=== PATIENT | female | born 1995 | race Two or more races ===

== ENCOUNTER 2020-11-27 18:41 | Emergency (ER) | payer MEDICAID, OTHER ==
[~2020-11-27] VITALS: Ht 162.6 cm; Wt 86.2 kg
[2020-11-27 19:33] LABS: Basophils # (auto) 0 10 ^3/uL (0-0.2); Eosinophils # (auto) 0.1 10 ^3/uL (0-0.8); Lymphocytes # (auto) 2.6 10 ^3/uL (0.4-5.4); Monocytes # (auto) 0.4 10 ^3/uL (0-1.3); Nucleated Red Blood Cells % 0.1 %
[2020-11-27 19:35] LABS: Basophils % (auto) 0.4 % (0.0-2.0); Eosinophils % (auto) 1.8 % (0.0-7.0); Hematocrit 38.2 % (36.0-46.0); Lymphocytes % (auto) 33.7 % (10.0-50.0); Mean Corpuscular Hemoglobin 26.3 pg (28.0-32.0); Mean Corpuscular Hgb Conc. 33.9 g/dL (32.0-36.0); Mean Corpuscular Volume 77.4 fL (80.0-100.0); Monocytes % (auto) 5.6 % (0.0-12.0); Neutrophils # (auto) 4.5 10 ^3/uL (1.6-8.6); Neutrophils % (auto) 58.5 % (37.0-80.0); Platelet Count (auto) 418 10^3/uL (140-450); Red Blood Cells 4.93 10^6/uL (4.0-5.20); Red Cell Distribution Width 15.2 % (11.8-14.3); White Blood Cell 7.7 10^3/uL (4.4-10.8)
[2020-11-27 19:49] LABS: Albumin 3.8 g/dL (3.4-5.0); Calcium 8.9 mg/dL (8.5-10.1); Potassium 3.9 mmol/L (3.5-5.1)
[2020-11-27 19:51] LABS: BUN/Creatinine Ratio 17.4
[2020-11-27 19:54] LABS: Bilirubin, Total 0.3 mg/dL (0.2-1.0); Total Protein 8.1 g/dL (6.4-8.2)
[2020-11-27 19:57] LABS: Urine Bacteria MANY /hpf (None Seen); Urine Blood Negative /uL (Negative); Urine Hyaline Cast FEW /lpf (0 - 2); Urine Mucus FEW (None Seen); Urine Specific Gravity 1.026 (1.001-1.035); Urine WBC 2 /hpf (0 - 5)
[2020-11-27] MEDS ORDERED: ONDANSETRON HCL 4 MG/2 ML VIAL IV ONE (20:45)
[2020-11-27] MEDS ORDERED: SODIUM CHLORIDE 0.9% 1,000 ML IV ONE (20:45)
[2020-11-27] MEDS ORDERED: IOHEXOL 300 MG/ML 100ML BOTTLE IJ ONE (22:09)
[2020-11-27] MEDS ORDERED: fentaNYL CITRATE 100 MCG/2 ML VL IV ONE (23:15)
[2020-11-28] MEDS ORDERED: cefTRIAXone 1GM/50ML D5W 50 ML IV ONE (01:00)
[2020-11-28 01:40] VITALS: BP 94/62
== END 2020-11-28 02:03 | disposition home or self-care (01) ==
LOC: ER 18:41
DX: R10.9 Unspecified abdominal pain (principal); R11.2 Nausea with vomiting, unspecified
CPT/HCPCS: 36415; 74176; 80053; 81001; 83690; 84702; 85025; 96361; 96365; 96375; 99285; J0696; J2405; J3010; Q9967

== ENCOUNTER 2021-02-01 08:13 | Emergency (ER) | payer MEDICAID ==
[~2021-02-01] VITALS: Ht 162.6 cm; Wt 95.3 kg
[2021-02-01 08:45] LABS: Basophils # (auto) 0.1 10 ^3/uL (0-0.2); Eosinophils # (auto) 0.3 10 ^3/uL (0-0.8); Hemoglobin 12.7 g/dL (12.2-16.2); Monocytes # (auto) 0.4 10 ^3/uL (0-1.3); White Blood Cell 8.6 10^3/uL (4.4-10.8)
[2021-02-01 08:46] LABS: Eosinophils % (auto) 3.2 % (0.0-7.0); Hematocrit 37.3 % (36.0-46.0); Lymphocytes # (auto) 2.5 10 ^3/uL (0.4-5.4); Mean Corpuscular Hemoglobin 26.3 pg (28.0-32.0); Mean Corpuscular Hgb Conc. 34.2 g/dL (32.0-36.0); Mean Corpuscular Volume 76.9 fL (80.0-100.0); Monocytes % (auto) 4.8 % (0.0-12.0); Neutrophils # (auto) 5.3 10 ^3/uL (1.6-8.6); Red Blood Cells 4.85 10^6/uL (4.0-5.20); Red Cell Distribution Width 14.8 % (11.8-14.3)
[2021-02-01 08:48] LABS: Urine Bacteria FEW /hpf (None Seen); Urine Blood Negative /uL (Negative); Urine Mucus FEW (None Seen); Urine Specific Gravity 1.022 (1.001-1.035); Urine WBC 1 /hpf (0 - 5)
[2021-02-01 09:06] LABS: Albumin 3.4 g/dL (3.4-5.0); Calcium 8.7 mg/dL (8.5-10.1); Potassium 3.9 mmol/L (3.5-5.1)
[2021-02-01 09:09] LABS: BUN/Creatinine Ratio 16.9; Bilirubin, Total 0.4 mg/dL (0.2-1.0); Total Protein 7.4 g/dL (6.4-8.2)
[2021-02-01 10:07] VITALS: BP 120/75
== END 2021-02-01 09:56 | disposition home or self-care (01) ==
LOC: ER 08:13
DX: K52.9 Noninfective gastroenteritis and colitis, unspecified (principal); Z90.89 Acquired absence of other organs; Z88.8 Allergy status to other drugs, medicaments and biological substances
CPT/HCPCS: 36415; 80053; 81001; 82150; 83690; 85025

== ENCOUNTER 2021-06-11 19:49 | Emergency (ER) | payer MEDICAID, OTHER ==
[~2021-06-11] VITALS: Ht 162.6 cm; Wt 90.7 kg
[2021-06-11] MEDS ORDERED: HYDROcodone-ACET 10/325MG TAB PO ONE (20:15)
[2021-06-11 22:23] LABS: Basophils # (auto) 0.1 10 ^3/uL (0-0.2); Basophils % (auto) 1.3 % (0.0-2.0); Eosinophils # (auto) 0.4 10 ^3/uL (0-0.8); Eosinophils % (auto) 3.4 % (0.0-7.0); Hematocrit 41.2 % (36.0-46.0); Hemoglobin 13.4 g/dL (12.2-16.2); Lymphocytes # (auto) 3.3 10 ^3/uL (0.4-5.4); Lymphocytes % (auto) 30.2 % (10.0-50.0); Mean Corpuscular Hemoglobin 25.5 pg (28.0-32.0); Mean Corpuscular Hgb Conc. 32.5 g/dL (32.0-36.0); Mean Corpuscular Volume 78.2 fL (80.0-100.0); Monocytes # (auto) 0.6 10 ^3/uL (0-1.3); Monocytes % (auto) 5.4 % (0.0-12.0); Neutrophils # (auto) 6.5 10 ^3/uL (1.6-8.6); Neutrophils % (auto) 59.7 % (37.0-80.0); Red Blood Cells 5.27 10^6/uL (4.0-5.20); White Blood Cell 10.9 10^3/uL (4.4-10.8)
[2021-06-11 22:38] LABS: INR 0.97 (0.9-1.15); Partial Thromboplastin Time 31.7 sec (23.6-33.0)
[2021-06-11 22:45] LABS: Albumin 3.7 g/dL (3.4-5.0); Calcium 9.1 mg/dL (8.5-10.1); Potassium 4.2 mmol/L (3.5-5.1)
[2021-06-11 22:47] LABS: BUN/Creatinine Ratio 15.6
[2021-06-11 22:49] LABS: Bilirubin, Total 0.2 mg/dL (0.2-1.0); Total Protein 7.5 g/dL (6.4-8.2)
[2021-06-12 00:08] LABS: Urine Amorphous Crystal FEW /hpf (None Seen); Urine Bacteria FEW /hpf (None Seen); Urine Blood 1+ /uL (Negative); Urine Specific Gravity 1.023 (1.001-1.035); Urine WBC 8 /hpf (0 - 5)
[2021-06-12 03:12] VITALS: BP 138/84
== END 2021-06-12 04:58 | disposition left against medical advice (07) ==
LOC: ER 19:53
DX: R10.30 Lower abdominal pain, unspecified (principal); M54.9 Dorsalgia, unspecified; Z90.89 Acquired absence of other organs; Z88.8 Allergy status to other drugs, medicaments and biological substances
CPT/HCPCS: 36415; 76830; 76856; 80053; 81001; 84702; 85025; 85610; 85730

== ENCOUNTER 2021-10-14 19:29 | Emergency (ER) | payer MEDICAID, OTHER ==
[~2021-10-14] VITALS: Ht 162.6 cm; Wt 89.8 kg
[2021-10-14] MEDS ORDERED: HYDROcodone-ACET 5/325MG TAB PO ONE (23:30)
[2021-10-15] MEDS ORDERED: HYDR-4902 PO (01:09)
[2021-10-15 02:25] VITALS: BP 111/65
== END 2021-10-15 05:14 | disposition home or self-care (01) ==
LOC: ER 19:29
DX: M54.50 Low back pain, unspecified (principal); Z90.89 Acquired absence of other organs; Z88.8 Allergy status to other drugs, medicaments and biological substances
CPT/HCPCS: 72131; 81025

== ENCOUNTER 2021-12-04 16:07 | Emergency (ER) | payer MEDICAID, OTHER ==
[~2021-12-04] VITALS: Ht 162.6 cm; Wt 102.1 kg
[2021-12-04 16:09] VITALS: BP 138/87
[2021-12-04 16:52] LABS: Basophils # (auto) 0.1 10 ^3/uL (0-0.2); Basophils % (auto) 0.6 % (0.0-2.0); Eosinophils # (auto) 0.3 10 ^3/uL (0-0.8); Eosinophils % (auto) 2.3 % (0.0-7.0); Hematocrit 39.1 % (36.0-46.0); Lymphocytes % (auto) 16.1 % (10.0-50.0); Mean Corpuscular Hemoglobin 26.2 pg (28.0-32.0); Mean Corpuscular Hgb Conc. 33.4 g/dL (32.0-36.0); Mean Corpuscular Volume 78.4 fL (80.0-100.0); Monocytes # (auto) 0.5 10 ^3/uL (0-1.3); Monocytes % (auto) 3.9 % (0.0-12.0); Neutrophils # (auto) 9.8 10 ^3/uL (1.6-8.6); Neutrophils % (auto) 77.1 % (37.0-80.0); Nucleated Red Blood Cells % 0.1 %; Red Blood Cells 4.98 10^6/uL (4.0-5.20); White Blood Cell 12.6 10^3/uL (4.4-10.8)
[2021-12-04 17:10] LABS: Albumin 3.6 g/dL (3.4-5.0); Calcium 9.1 mg/dL (8.5-10.1); Potassium 3.8 mmol/L (3.5-5.1)
[2021-12-04 17:13] LABS: Bilirubin, Total 0.4 mg/dL (0.2-1.0)
[2021-12-04 17:50] LABS: INR 1.04 (0.9-1.15); Partial Thromboplastin Time 32.5 sec (23.6-33.0)
[2021-12-04] MEDS ORDERED: HYDROcodone-ACET 10/325MG TAB PO ONE (20:45)
[2021-12-04] MEDS ORDERED: CEPH-509 PO (22:28)
== END 2021-12-05 00:52 | disposition home or self-care (01) ==
LOC: ER 16:07
DX: K92.2 Gastrointestinal hemorrhage, unspecified (principal); N39.0 Urinary tract infection, site not specified; Z90.89 Acquired absence of other organs; Z88.8 Allergy status to other drugs, medicaments and biological substances
CPT/HCPCS: 36415; 74176; 80053; 85025; 85610; 85730

== ENCOUNTER 2022-03-09 19:13 | Emergency (ER) | payer OTHER ==
[~2022-03-09] VITALS: Ht 165.1 cm; Wt 95.0 kg
[~2022-03-09 19:13] MED LIST: CEPH-509 PO
[2022-03-09 22:33] LABS: Basophils # (auto) 0.1 10 ^3/uL (0-0.2); Eosinophils # (auto) 0.3 10 ^3/uL (0-0.8); Monocytes # (auto) 0.6 10 ^3/uL (0-1.3); Neutrophils % (auto) 61.7 % (37.0-80.0)
[2022-03-09 22:34] LABS: Basophils % (auto) 0.8 % (0.0-2.0); Eosinophils % (auto) 2.7 % (0.0-7.0); Hematocrit 38.2 % (36.0-46.0); Hemoglobin 12.5 g/dL (12.2-16.2); Lymphocytes # (auto) 3.5 10 ^3/uL (0.4-5.4); Lymphocytes % (auto) 29.7 % (10.0-50.0); Mean Corpuscular Hemoglobin 25.3 pg (28.0-32.0); Mean Corpuscular Hgb Conc. 32.6 g/dL (32.0-36.0); Mean Corpuscular Volume 77.4 fL (80.0-100.0); Monocytes % (auto) 5.1 % (0.0-12.0); Neutrophils # (auto) 7.3 10 ^3/uL (1.6-8.6); Red Blood Cells 4.94 10^6/uL (4.0-5.20); Red Cell Distribution Width 15.5 % (11.8-14.3); White Blood Cell 11.9 10^3/uL (4.4-10.8)
[2022-03-09 22:50] LABS: Albumin 3.6 g/dL (3.4-5.0); BUN/Creatinine Ratio 19.4; Potassium 3.5 mmol/L (3.5-5.1)
[2022-03-09 22:53] LABS: Bilirubin, Total 0.2 mg/dL (0.2-1.0); Total Protein 7.7 g/dL (6.4-8.2)
[2022-03-09 23:32] LABS: Urine Bacteria FEW /hpf (None Seen); Urine Blood Negative /uL (Negative); Urine Specific Gravity 1.018 (1.001-1.035); Urine WBC 8 /hpf (0 - 5)
[2022-03-10] MEDS ORDERED: NITR-87 PO (00:56)
[2022-03-10 01:30] VITALS: BP 131/75
== END 2022-03-10 01:38 | disposition home or self-care (01) ==
LOC: ER 19:15
DX: N39.0 Urinary tract infection, site not specified (principal); Z88.8 Allergy status to other drugs, medicaments and biological substances
CPT/HCPCS: 36415; 74176; 80053; 81001; 83605; 83690; 84702; 85025

== ENCOUNTER 2023-02-04 16:25 | Emergency (ER) | payer OTHER ==
[~2023-02-04] VITALS: Ht 162.6 cm; Wt 110.0 kg
[~2023-02-04 16:25] MED LIST changes: +NITR-87 PO; +PANT40TA2 PO
[2023-02-04] MEDS ORDERED: CEPH500C PO (20:45)
[2023-02-04] MEDS ORDERED: ZOFR4T PO (20:45)
[2023-02-04] MEDS ORDERED: HYDR-4902 PO (20:45)
[2023-02-04] MEDS ORDERED: HYDROcodone-ACET 5/325MG TAB PO ONE (20:45)
[2023-02-04] MEDS ORDERED: ONDANSETRON ODT 4 MG TAB PO ONE (20:45)
[2023-02-04] MEDS ORDERED: TETANUS-DIPTH-ACEL PERTUSSIS 0.5ML SYR Tdap IM ONE (20:45)
[2023-02-04 20:55] VITALS: BP 126/74; PULSE 76; RESP 16; TEMP 98.6; O2SAT 98
== END 2023-02-04 21:03 | disposition home or self-care (01) ==
LOC: ER 16:25
DX: S91.331A Puncture wound without foreign body, right foot, initial encounter (principal); Z79.899 Other long term (current) drug therapy; Z91.040 Latex allergy status; Z90.89 Acquired absence of other organs; W22.8XXA Striking against or struck by other objects, initial encounter; Y93.89 Activity, other specified; Y92.89 Other specified places as the place of occurrence of the external cause; Y99.8 Other external cause status
CPT/HCPCS: 73630; 90471; 90715; 99283; Q0162

== ENCOUNTER 2024-01-01 15:09 | Emergency (ER) | payer MEDICAID ==
[~2024-01-01] VITALS: Ht 160 cm; Wt 108.2 kg
[~2024-01-01 15:09] MED LIST changes: +CEPH500C PO; +HYDR-4902 PO; +ZOFR4T PO
[2024-01-01] MEDS: MORPHINE SULFATE 4 MG/ML SYR/VIAL IV ONE (16:49)
[2024-01-01] MEDS: ONDANSETRON HCL 4 MG/2 ML VIAL IV ONE (16:50)
[2024-01-01 16:52] LABS: Basophils # (auto) 0.1 10 ^3/uL (0-0.2); Basophils % (auto) 0.6 % (0.0-2.0); Eosinophils # (auto) 0.2 10 ^3/uL (0-0.8); Monocytes # (auto) 0.4 10 ^3/uL (0-1.3); Neutrophils % (auto) 76.9 % (37.0-80.0)
[2024-01-01] MEDS: SODIUM CHLORIDE 0.9% 1,000 ML IV ONE (16:52)
[2024-01-01 16:55] VITALS: PULSE 89; RESP 12; O2SAT 98
[2024-01-01 16:55] LABS: Eosinophils % (auto) 1.7 % (0.0-7.0); Hematocrit 36.7 % (36.0-46.0); Lymphocytes % (auto) 17.4 % (10.0-50.0); Mean Corpuscular Hemoglobin 24.6 pg (28.0-32.0); Mean Corpuscular Hgb Conc. 32.6 g/dL (32.0-36.0); Mean Corpuscular Volume 75.5 fL (80.0-100.0); Monocytes % (auto) 3.4 % (0.0-12.0); Red Blood Cells 4.86 10^6/uL (4.0-5.20); Red Cell Distribution Width 16.7 % (11.8-14.3); White Blood Cell 11.7 10^3/uL (4.4-10.8)
[2024-01-01 17:00] LABS: Urine Bacteria FEW /hpf (None Seen); Urine Blood 3+ /uL (Negative); Urine Clarity Ex.Turbid (Clear); Urine Color Brown (Yellow); Urine Mucus FEW (None Seen); Urine Protein, UAD 1+ (Negative); Urine Specific Gravity 1.023 (1.001-1.035); Urine Urobilinogen Normal (Negative); Urine WBC 34 /hpf (0 - 5); Urine WBC Clumps PRESENT /hpf (None Seen); Urine pH 7.5 (5.0-9.0)
[2024-01-01 17:05] LABS: Alanine Aminotransferase 19 U/L (7-40); Alkaline Phosphatase 87 U/L (46-116); Anion Gap 8 (5-15); Aspartate Aminotransferase < 8 U/L (13-40); BUN/Creatinine Ratio 14.8 (10.0-20.0); Blood Urea Nitrogen 12 mg/dL (9-23); Calcium 9.7 mg/dL (8.7-10.4); Carbon Dioxide 23 mmol/L (20-30); Chloride 106 mmol/L (98-107); Glucose 137 mg/dL (74-106); Potassium 3.9 mmol/L (3.5-5.1); Sodium 137 mmol/L (136-145)
[2024-01-01 17:06] LABS: Albumin 4.5 g/dL (3.2-4.8)
[2024-01-01 17:07] LABS: Bilirubin, Total 0.3 mg/dL (0.2-1.0); Total Protein 7.3 g/dL (5.7-8.2)
[2024-01-01 17:28] LABS: INR 1.04 (0.9-1.15)
[2024-01-01] MEDS ORDERED: NITR-87 PO (17:49)
[2024-01-01 21:31] VITALS: BP 128/68; PULSE 69; RESP 20; TEMP 98.4; O2SAT 100
== END 2024-01-01 21:33 | disposition home or self-care (01) ==
LOC: ER 15:09
DX: N93.9 Abnormal uterine and vaginal bleeding, unspecified (principal); R10.2 Pelvic and perineal pain; N39.0 Urinary tract infection, site not specified; Z85.9 Personal history of malignant neoplasm, unspecified; Z98.890 Other specified postprocedural states; Z87.891 Personal history of nicotine dependence; Z88.8 Allergy status to other drugs, medicaments and biological substances; Z91.041 Radiographic dye allergy status; Z79.899 Other long term (current) drug therapy
CPT/HCPCS: 36415; 76830; 76856; 80053; 81001; 84702; 85025; 85610; 86900; 86901; 96374; 96375; 99285; J2270; J2405

== ENCOUNTER → 2024-02-18 | Day surgery (SDC) | payer MEDICAID ==
[2024-02-15 15:16] LABS: Urine Bacteria None Seen /hpf (None Seen)
[2024-02-15 15:18] LABS: Basophils # (auto) 0.1 10 ^3/uL (0-0.2); Eosinophils # (auto) 0.3 10 ^3/uL (0-0.8); Monocytes # (auto) 0.6 10 ^3/uL (0-1.3)
[2024-02-15 15:22] LABS: Basophils % (auto) 0.8 % (0.0-2.0); Eosinophils % (auto) 2.4 % (0.0-7.0); Hematocrit 35.3 % (36.0-46.0); Hemoglobin 11.2 g/dL (12.2-16.2); Lymphocytes # (auto) 2.8 10 ^3/uL (0.4-5.4); Lymphocytes % (auto) 23.3 % (10.0-50.0); Mean Corpuscular Hemoglobin 23.9 pg (28.0-32.0); Mean Corpuscular Hgb Conc. 31.9 g/dL (32.0-36.0); Monocytes % (auto) 5.3 % (0.0-12.0); Neutrophils # (auto) 8.2 10 ^3/uL (1.6-8.6); Neutrophils % (auto) 68.2 % (37.0-80.0); Platelet Count (auto) 473 10^3/uL (140-450); Red Cell Distribution Width 15.9 % (11.8-14.3)
[2024-02-15 15:39] LABS: INR 1.02 (0.9-1.15); Partial Thromboplastin Time 30.8 SEC (24.5-34.5); Prothrombin Time 10.8 sec (9.3-11.8); Urine Blood Negative /uL (Negative); Urine Clarity Turbid (Clear); Urine Color Light-Yellow (Yellow); Urine Protein, UAD Negative (Negative); Urine Specific Gravity 1.019 (1.001-1.035); Urine Urobilinogen Normal (Negative); Urine WBC 1 /hpf (0 - 5); Urine pH 6.5 (5.0-9.0)
[2024-02-15 16:04] LABS: Alanine Aminotransferase 20 U/L (7-40); Albumin 4.5 g/dL (3.2-4.8); Alkaline Phosphatase 101 U/L (46-116); Anion Gap 6 (5-15); Aspartate Aminotransferase < 8 U/L (13-40); BUN/Creatinine Ratio 13.9 (10.0-20.0); Bilirubin, Total 0.4 mg/dL (0.2-1.0); Blood Urea Nitrogen 11 mg/dL (9-23); Calcium 9.7 mg/dL (8.7-10.4); Carbon Dioxide 27 mmol/L (20-30); Chloride 106 mmol/L (98-107); Glucose 106 mg/dL (74-106); Potassium 3.7 mmol/L (3.5-5.1); Sodium 139 mmol/L (136-145); Total Protein 7.1 g/dL (5.7-8.2)
[~2024-02-18] VITALS: Ht 162.6 cm; Wt 105.2 kg
[~2024-02-18] MED LIST changes: +ATOR20TA PO; -CEPH-509 PO; -CEPH500C PO; +CHOL200031 PO; +GLYCOPYRROLATE 0.2 MG/ML 1ML VIAL ONE; -HYDR-4902 PO; +HYDROmorphone HCL 2 MG/ML VL/or syr IV PRN; +KETAMINE 50mg/ML 1ml syringe ONE; +MIDAZOLAM HCL 2MG/2ML 2ml VIAL (1mg/ml) ONE; -NITR-87 PO; +ONDANSETRON HCL 4 MG/2 ML VIAL IV ONE; +ONDANSETRON HCL 4 MG/2 ML VIAL ONE; +PROPOFOL 10 MG/ML 20 ML IV ONE; -ZOFR4T PO; +fentaNYL CITRATE 100 MCG/2 ML VL ONE
[2024-02-18 11:14] VITALS: RESP 11; TEMP 98; O2SAT 100
[2024-02-18 11:38] VITALS: BP 103/55; PULSE 70; RESP 16; O2SAT 95
== END | disposition home or self-care (01) ==
LOC: GI 08:18
PROVIDERS: ATTEND Internal Medicine Gastroenterology
DX: R10.13 Epigastric pain (principal); R11.2 Nausea with vomiting, unspecified; E78.00 Pure hypercholesterolemia, unspecified; K44.9 Diaphragmatic hernia without obstruction or gangrene; E28.2 Polycystic ovarian syndrome; J45.909 Unspecified asthma, uncomplicated; G89.29 Other chronic pain; M06.9 Rheumatoid arthritis, unspecified; F32.A Depression, unspecified; E66.9 Obesity, unspecified; Z68.39 Body mass index [BMI] 39.0-39.9, adult; Z79.899 Other long term (current) drug therapy; Z90.89 Acquired absence of other organs; Z85.43 Personal history of malignant neoplasm of ovary; Z86.16 Personal history of COVID-19; Z85.6 Personal history of leukemia; Z87.891 Personal history of nicotine dependence; Z88.6 Allergy status to analgesic agent; Z88.8 Allergy status to other drugs, medicaments and biological substances; Z91.041 Radiographic dye allergy status
CPT/HCPCS: 36415; 43235; 80053; 81001; 84702; 85025; 85610; 85730; J2250; J2405; J2704; J3010; J7030

== ENCOUNTER 2024-05-01 20:58 | Emergency (ER) | payer MEDICAID ==
[~2024-05-01] VITALS: Ht 162.6 cm; Wt 110.0 kg
[~2024-05-01 20:58] MED LIST changes: -GLYCOPYRROLATE 0.2 MG/ML 1ML VIAL ONE; -HYDROmorphone HCL 2 MG/ML VL/or syr IV PRN; -KETAMINE 50mg/ML 1ml syringe ONE; -MIDAZOLAM HCL 2MG/2ML 2ml VIAL (1mg/ml) ONE; -ONDANSETRON HCL 4 MG/2 ML VIAL IV ONE; -ONDANSETRON HCL 4 MG/2 ML VIAL ONE; -PROPOFOL 10 MG/ML 20 ML IV ONE; -fentaNYL CITRATE 100 MCG/2 ML VL ONE
[2024-05-01 21:42] LABS: Basophils # (auto) 0.1 10 ^3/uL (0-0.2); Basophils % (auto) 0.6 % (0.0-2.0); Eosinophils # (auto) 0.3 10 ^3/uL (0-0.8); Eosinophils % (auto) 2.9 % (0.0-7.0); Hematocrit 36.3 % (36.0-46.0); Hemoglobin 11.8 g/dL (12.2-16.2); Lymphocytes % (auto) 26.4 % (10.0-50.0); Mean Corpuscular Hemoglobin 24.2 pg (28.0-32.0); Mean Corpuscular Hgb Conc. 32.4 g/dL (32.0-36.0); Mean Corpuscular Volume 74.8 fL (80.0-100.0); Monocytes # (auto) 0.5 10 ^3/uL (0-1.3); Monocytes % (auto) 4.6 % (0.0-12.0); Neutrophils # (auto) 7.6 10 ^3/uL (1.6-8.6); Neutrophils % (auto) 65.5 % (37.0-80.0); Platelet Count (auto) 537 10^3/uL (140-450); Red Blood Cells 4.85 10^6/uL (4.0-5.20); White Blood Cell 11.5 10^3/uL (4.4-10.8)
[2024-05-01 21:46] LABS: Chloride 111 mmol/L (98-107); Potassium 4.4 mmol/L (3.5-5.1); Sodium 140 mmol/L (136-145)
[2024-05-01 21:47] LABS: Anion Gap 8 (5-15); Calcium 9.9 mg/dL (8.7-10.4); Carbon Dioxide 21 mmol/L (20-31)
[2024-05-01 21:52] LABS: BUN/Creatinine Ratio 16.2 (10.0-20.0); Blood Urea Nitrogen 12 mg/dL (9-23); Glucose 110 mg/dL (74-106)
[2024-05-01 22:19] LABS: Urine Bacteria FEW /hpf (None Seen); Urine Blood 2+ /uL (Negative); Urine Clarity Clear (Clear); Urine Color Light-Yellow (Yellow); Urine Mucus FEW (None Seen); Urine Protein, UAD Negative (Negative); Urine Specific Gravity 1.022 (1.001-1.035); Urine Urobilinogen Normal (Negative); Urine WBC 3 /hpf (0 - 5)
[2024-05-01] MEDS: HYDROcodone-ACET 5/325MG TAB PO ONE (23:12)
[2024-05-01 23:14] VITALS: BP 112/68; PULSE 88; RESP 19; TEMP 98.2; O2SAT 97
[2024-05-02] MEDS ORDERED: IBU600T PO (00:45)
== END 2024-05-02 01:02 | disposition home or self-care (01) ==
LOC: ER 20:58
DX: N83.201 Unspecified ovarian cyst, right side (principal); R10.2 Pelvic and perineal pain; N92.0 Excessive and frequent menstruation with regular cycle; F17.290 Nicotine dependence, other tobacco product, uncomplicated; E66.01 Morbid (severe) obesity due to excess calories; Z68.41 Body mass index [BMI] 40.0-44.9, adult; Z86.2 Personal history of diseases of the blood and blood-forming organs and certain disorders involving the immune mechanism; Z85.9 Personal history of malignant neoplasm, unspecified; Z98.890 Other specified postprocedural states; Z90.89 Acquired absence of other organs; Z91.041 Radiographic dye allergy status; Z88.8 Allergy status to other drugs, medicaments and biological substances; Z88.6 Allergy status to analgesic agent; Z79.899 Other long term (current) drug therapy
CPT/HCPCS: 36415; 76830; 76856; 80048; 81001; 84702; 85025

== ENCOUNTER 2024-06-10 14:12 | Emergency (ER) | payer MEDICAID ==
[~2024-06-10] VITALS: Ht 162.6 cm; Wt 111.0 kg
[~2024-06-10 14:12] MED LIST changes: +IBU600T PO
--- NOTE | 2024-06-10 15:14 | DVH ---
CLINICAL INDICATION: PAIN TECHNIQUE: 3 radiographic views of the right forearm were obtained. Comparison: XY R FOOT 3 VIEW XRAY on DOS: 02/04/23 FINDINGS/IMPRESSION: There is no evidence of acute fracture or dislocation. The visualized joint space is well maintained. The alignment is anatomical. There is no radiopaque foreign body.
--- NOTE | 2024-06-10 16:07 | ED.PDOC ---
Musculoskeletal HPI Comments This patient is a pleasant but severely morbidly obese 28-year-old female who arrives the ED today for evaluation of distal right forearm pain status post having a clock fall on arm proximally 1 hour prior to arrival. Patient states it was a manage her grandfather clock that fell over, striking her on the right forearm. Patient arrives with mild swelling and discomfort. No bruising noted. No blood loss. Vital signs were stable on arrival. Patient denies any head trauma. Chief Complaint: Upper Extremity Time Seen by MD: 15:55 Primary Care Provider: Hima Reviewed Notes: Nurses Notes Allergies: Coded Allergies: Ibuprofen (Verified Allergy, Severe, 11/27/20) Iodine (Verified Allergy, Unknown, 10/14/21) Valproic Acid (Verified Allergy, Unknown, 02/04/23) Home Meds Active Scripts Ibuprofen Micronized (MOTRIN TABLET) 600 Mg Tb, 600 MG PO TID PRN, #40 TAB *Black box warning-NSAIDS can increase risk of CT & hypertension, GI irritation, ulceration, bleed, perferation. Do not use post cardiac surgery. Use short duration/lowest effective dose. Prov:DAMON WOOTEN MD 05/02/24 Pantoprazole Sodium Sesquihydr (Protonix) 40 Mg Tab, 40 MG PO DAILY, #30 TAB Prov:HIEN ROACH DO 10/02/23 Reported Medications Atorvastatin Calcium (Lipitor) Unknown Strength Tab, PO DAILY, TAB 02/17/24 Cholecalciferol (D3) Unknown Strength Cap, PO DAILY, CAP 02/17/24 Information Source: Patient, Friend Mode of Arrival: Ambulatory Location: Right Extremity Location: Forearm Timing: Hours Prehospital treatment: None Severity: Mild Able to Move Extremity: Yes Bear Weight: Fully Pain: Moderate Hand Dominance: Right Mechanism: Blunt Trauma Circumstances: Spontaneous Onset of Symptoms: After Trauma Symptoms: Swelling, Pain DVT Risk Factors: NONE Past Medical History PAST MEDICAL HISTORY: Anemia, Cancer Surgical History: Hernia Repair, Tonsillectomy PORTER HEAD History: Endometriosis, Other Family History Family History: Reviewed,noncontributory to illness Social History Smoker: Non-Smoker Alcohol: Occasionally Drugs: Denies Drug Use Lives In: Home Constitutional: denies: chills, diaphoresis, fatigue, fever, malaise, sweats, weakness, others EENTM: denies: blurred vision, double vision, ear bleeding, ear discharge, ear drainage, ear pain, ear ringing, eye pain, eye redness, hearing loss, mouth pain, mouth swelling, nasal discharge, nose bleeding, nose congestion, nose pain, photophobia, tearing, throat pain, throat swelling, voice changes, others Respiratory: denies: cough, hemoptysis, orthopnea, SOB at rest, shortness of breath, SOB with excertion, stridor, wheezing, others Cardiovascular: denies: chest pain, dizzy spells, diaphoresis, Dyspnea on exertion, edema, irregular heart beat, left arm pain, lightheadedness, palpitations, PND, syncope, others Gastrointestinal: denies: abdomen distended, abdominal pain, blood streaked bowels, constipated, diarrhea, dysphagia, difficulty swallowing, hematemesis, melena, nausea, poor appetite, poor fluid intake, rectal bleeding, rectal pain, vomiting, others Genitourinary: denies: abnormal vagina bleeding, burning, dyspareunia, dysuria, flank pain, frequency, hematuria, incontinence, pain, , vagina discharge, urgency, others Neurological: denies: dizziness, fainting, headache, left sided numbness, left sided weakness, numbness, paresthesia, pre-existing deficit, right sided numbness, right sided weakness, seizure, speech problems, tingling, tremors, weakness, others Musculoskeletal: reports: others (Distal right forearm pain); denies: back pain, gout, joint pain, joint swelling, muscle pain, muscle stiffness, neck pain Integumetry: denies: bruises, change in color, change in hair/nails, dryness, laceration, lesions, lumps, rash, wounds, others Allergic/Immunocompromised: denies: Difficulty Healing, Frequent Infections, Hives, Itching, others Hematologic/Lymphatic: denies: anemia, blood clots, easy bleeding, easy bruising, swollen glands, others Endocrine: denies: excessive hunger, excessive sweating, excessive thirst, excessive urination, flushing, intolerance to cold, intolerance to heat, unexplained weight gain, unexplained weight loss, others Psychiatric: denies: anxiety, bipolar disorder, depression, hopeless, panic disorder, schizophrenia, sleepless, suicidal, others Physical Exam General Appearance: Moderate Distress ([id number] distress due to right forearm pain concerns. Patient declined any pain medication while at the facility has she states she has multiple pain medication options at home.), Obese HEENT: Normal ENT Inspection, Pharynx Normal, TMs Normal Neck: Full Range of Motion, Non-Tender, Normal, Normal Inspection Respiratory: Chest Non-Tender, Lungs Clear, No Accessory Muscle Use, No Respiratory Distress, Normal Breath Sounds Cardiovascular: No Edema, No JVD, No Murmur, No Gallop, Normal Peripheral Pulses, Regular Rate/Rhythm Breast Exam: Deferred Gastrointestinal: No Organomegaly, Non Tender, No Pulsatile Mass, Normal Bowel Sounds, Soft Genitalia: Deferred Pelvic: Deferred Rectal: Deferred Extremities: Other (Dorsal and lateral aspect of left forearm reveals mild edema and diffuse tenderness to palpation throughout the distal aspect. No ecchymosis appreciated. Mild reduced range of motion. 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 Was a procedure done?: No Differential Diagnosis EXT Differential Diagnosis: Fracture, Sprain, Contusion X-Ray, Labs, Meds, VS Vital Signs Date Time Temp Pulse Resp B/P (MAP) Pulse Ox O2 Delivery O2 Flow Rate FiO2 06/10/24 14:35 98.0 82 17 124/76 (92) 95 X-Ray, Labs, Meds, VS Comment All studies performed the ED were evaluated by me personally. Imaging studies of the right forearm were unremarkable for any acute fractures. Patient sustained a contusion to the distal aspect. Advised patient utilize pain medication as needed as well as ice therapy. Time of 1ST Reevaluation: 16:07 Reevaluation 1ST: Unchanged Consultation: PCP Patient Education/Counseling: Diagnosis, Treatment Family Education/Counseling: Diagnosis, Treatment Departure 1 Departure Time of Disposition: 16:06 Impression: Primary Impression: Contusion of forearm, right Disposition: 01 HOME / SELF CARE / HOMELESS Condition: Stable Additional Instructions: Advised pain medication and ice therapy as needed. Discharged With: Self, Friend Critical Care Note Critical Care Time?: No Stability Stability form required: No Heart Score Heart Score: Heart Score Response (Comments) Value History N/A 0 EKG N/A 0 Age N/A 0 Risk Factors N/A 0 Troponin N/A 0 Total 0 AURA TEIXEIRA PAC Jun 10, 2024 16:07
[2024-06-10 16:30] VITALS: BP 122/78; PULSE 80; RESP 18; TEMP 98.2; O2SAT 96
== END 2024-06-10 16:25 | disposition home or self-care (01) ==
LOC: ER 14:12
DX: S50.11XA Contusion of right forearm, initial encounter (principal); Z88.8 Allergy status to other drugs, medicaments and biological substances; Z79.899 Other long term (current) drug therapy; Z90.89 Acquired absence of other organs; W18.39XA Other fall on same level, initial encounter; Y93.89 Activity, other specified; Y92.89 Other specified places as the place of occurrence of the external cause; Y99.8 Other external cause status
CPT/HCPCS: 73090

== ENCOUNTER 2024-08-03 12:50 | Inpatient (IN) | payer MEDICAID ==
[~2024-08-03] VITALS: Ht 162.6 cm; Wt 112.6 kg
--- NOTE | 2024-08-03 14:47 | ED.PDOC ---
History of Present Illness HPI Comments 28-year-old female presents with a chief complaint of flank pain, nausea, and vomiting x 3 days. Patient states that she was at [facility] on Thursday (x3 days ago) and was told that one of the cysts on her kidneys popped. Patient reports that she had cysts drained and had to stay overnight for IV antibiotics and was discharged home. Patient mentions that this morning she woke up and had 10/10 pain to her bilateral flanks and could not walk due to the pain. Patient reports that she has not been able to urinate. No other symptoms or modifying factors present at this time. Chief Complaint: Flank Pain Time Seen by MD: 14:39 Primary Care Provider: Hima Forbes Notes: Medications, Allergies Allergies: Coded Allergies: Ibuprofen (Verified Allergy, Severe, 11/27/20) Iodine (Verified Allergy, Unknown, 10/14/21) Valproic Acid (Verified Allergy, Unknown, 02/04/23) Home Meds Active Scripts Ibuprofen Micronized (MOTRIN TABLET) 600 Mg Tb, 600 MG PO TID PRN, #40 TAB *Black box warning-NSAIDS can increase risk of [place] & hypertension, GI irritation, ulceration, bleed, perferation. Do not use post cardiac surgery. Use short duration/lowest effective dose. Prov:DAMON WOOTEN MD 05/02/24 Pantoprazole Sodium Sesquihydr (Protonix) 40 Mg Tab, 40 MG PO DAILY, #30 TAB Prov:HIEN ROACH DO 10/02/23 Reported Medications Atorvastatin Calcium (Lipitor) Unknown Strength Tab, PO DAILY, TAB 02/17/24 Cholecalciferol (D3) Unknown Strength Cap, PO DAILY, CAP 02/17/24 Information Source: Patient Mode of Arrival: Ambulatory Severity: Moderate Timing: Days Duration: Intermittent Prehospital treatment: None Past Medical History PAST MEDICAL HISTORY: Anemia, Cancer Surgical History: Hernia Repair, Tonsillectomy INSTRUMENT PERSON History: Endometriosis, Other Family History Family History: Reviewed,noncontributory to illness Social History Smoker: Quit Less Than 1 Year, Cigarettes Alcohol: Occasionally Drugs: Denies Drug Use Lives In: Home Constitutional: denies: chills, diaphoresis, fatigue, fever, malaise, sweats, weakness, others EENTM: denies: blurred vision, double vision, ear bleeding, ear discharge, ear drainage, ear pain, ear ringing, eye pain, eye redness, hearing loss, mouth pain, mouth swelling, nasal discharge, nose bleeding, nose congestion, nose pain, photophobia, tearing, throat pain, throat swelling, voice changes, others Respiratory: denies: cough, hemoptysis, orthopnea, SOB at rest, shortness of breath, SOB with excertion, stridor, wheezing, others Cardiovascular: denies: chest pain, dizzy spells, diaphoresis, Dyspnea on exertion, edema, irregular heart beat, left arm pain, lightheadedness, palpitations, PND, syncope, others Gastrointestinal: reports: nausea, vomiting; denies: abdomen distended, abdominal pain, blood streaked bowels, constipated, diarrhea, dysphagia, difficulty swallowing, hematemesis, melena, poor appetite, poor fluid intake, rectal bleeding, rectal pain, others Genitourinary: reports: flank pain; denies: abnormal vagina bleeding, burning, dyspareunia, dysuria, frequency, hematuria, incontinence, pain, , vagina discharge, urgency, others Neurological: denies: dizziness, fainting, headache, left sided numbness, left sided weakness, numbness, paresthesia, pre-existing deficit, right sided numbness, right sided weakness, seizure, speech problems, tingling, tremors, weakness, others Musculoskeletal: denies: back pain, gout, joint pain, joint swelling, muscle pain, muscle stiffness, neck pain, others Integumetry: denies: bruises, change in color, change in hair/nails, dryness, laceration, lesions, lumps, rash, wounds, others Allergic/Immunocompromised: denies: Difficulty Healing, Frequent Infections, Hives, Itching, others Hematologic/Lymphatic: denies: anemia, blood clots, easy bleeding, easy bruising, swollen glands, others Endocrine: denies: excessive hunger, excessive sweating, excessive thirst, excessive urination, flushing, intolerance to cold, intolerance to heat, unexplained weight gain, unexplained weight loss, others Psychiatric: denies: anxiety, bipolar disorder, depression, hopeless, panic disorder, schizophrenia, sleepless, suicidal, others All Other Systems: Reviewed and Negative Physical Exam General Appearance: Moderate Distress HEENT: Normal ENT Inspection, Pharynx Normal, TMs Normal Neck: Full Range of Motion, Non-Tender, Normal, Normal Inspection Respiratory: Chest Non-Tender, Lungs Clear, No Accessory Muscle Use, No Respiratory Distress, Normal Breath Sounds Cardiovascular: No Edema, No JVD, No Murmur, No Gallop, Normal Peripheral Pulses, Regular Rate/Rhythm Breast Exam: Deferred Gastrointestinal: No Organomegaly, Non Tender, No Pulsatile Mass, Normal Bowel Sounds, Soft Genitalia: Deferred Pelvic: Deferred Rectal: Deferred Extremities: No calf tenderness, Normal capillary refill, Normal inspection, Normal range of motion, Non-tender, No pedal edema Musculoskeletal : Apperance: Normal 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 Was a procedure done?: No Differential Dx Considerations may include: UTI, urinary retention, kidney stones, renal cysts X-Ray, Labs, Meds, VS Vital Signs Date Time Temp Pulse Resp B/P (MAP) Pulse Ox O2 Delivery O2 Flow Rate FiO2 08/03/24 16:30 78 16 123/68 08/03/24 16:02 20 100 Room Air* 0 21 08/03/24 15:45 90 20 122/75 08/03/24 15:28 90 20 97 Room Air 08/03/24 15:28 98.0 90 20 122/75 (91) 97 98.0 08/03/24 13:35 98.2 95 18 112/82 (92) 98 Lab Test 08/03/24 15:16 Range/Units White Blood Count 10.4 4.4-10.8 10^3/uL Red Blood Count 5.11 4.0-5.20 10^6/uL Hemoglobin 12.1 L 12.2-16.2 g/dL Hematocrit 37.5 36.0-46.0 % Mean Corpuscular Volume 73.4 L 80.0-100.0 fL Mean Corpuscular Hemoglobin 23.8 L 28.0-32.0 pg Mean Corpuscular Hemoglobin Concent 32.4 32.0-36.0 g/dL Red Cell Distribution Width 17.6 H 11.8-14.3 % Platelet Count 501 H 140-450 10^3/uL Mean Platelet Volume 6.7 L 6.9-10.8 fL Neutrophils (%) (Auto) 64.5 37.0-80.0 % Lymphocytes (%) (Auto) 26.3 10.0-50.0 % Monocytes (%) (Auto) 5.1 0.0-12.0 % Eosinophils (%) (Auto) 3.6 0.0-7.0 % Basophils (%) (Auto) 0.5 0.0-2.0 % Neutrophils # (Auto) 6.7 1.6-8.6 10 ^3/uL Lymphocytes # (Auto) 2.7 0.4-5.4 10 ^3/uL Monocytes # (Auto) 0.5 0-1.3 10 ^3/uL Eosinophils # (Auto) 0.4 0-0.8 10 ^3/uL Basophils # (Auto) 0.1 0-0.2 10 ^3/uL Nucleated Red Blood Cells 0.1 % Sodium Level 139 136-145 mmol/L Potassium Level 3.8 3.5-5.1 mmol/L Chloride Level 106 98-107 mmol/L Carbon Dioxide Level 25 20-31 mmol/L Anion Gap 8 5-15 Blood Urea Nitrogen 13 9-23 mg/dL Creatinine 0.69 0.550-1.02 mg/dL Glomerular Filtration Rate Calc 120 >90 mL/min BUN/Creatinine Ratio 18.8 10.0-20.0 Serum Glucose 89 74-106 mg/dL Calcium Level 10.2 8.7-10.4 mg/dL Current Medications Medications (Trade) Dose Ordered Sig/Diann Route Start Time Stop Time Status Last Admin Ondansetron HCl (Zofran) 4 mg ONCE ONCE IV 08/03/24 14:45 08/03/24 14:46 DC 08/03/24 15:44 Sodium Chloride 1,000 ml @ 1,000 mls/hr Q1H ONCE IVB 08/03/24 14:45 08/03/24 15:44 DC 08/03/24 15:28 Morphine Sulfate 4 mg ONCE ONCE IV 08/03/24 14:45 08/03/24 14:46 DC 08/03/24 15:45 Abdomen/Pelvis CT Impression: 1. There is no acute process in the abdomen and pelvis. 2. Stable nonspecific heterogeneous appearance of the kidneys as described above. Clinical correlation is recommended. If warranted, further evaluation with CT urogram may be performed. The patient states that she is unable to urinate We ordered a Smith catheter. The patient's CBC and chemistry panel are within normal limits The patient was given Zofran 4 mg IV push for the nausea The patient was given a 1 L bolus of normal saline The patient was given morphine for the pain The patient was being admitted to the hospitalist Images Reviewed?: Images reviewed and evaluated by me Time of 1ST Reevaluation: 15:09 Reevaluation 1ST: Unchanged Time of 2ND Reevaluation: 21:45 Reevaluation 2ND: Unchanged Patient Education/Counseling: Diagnosis, Treatment, Prognosis Family Education/Counseling: Diagnosis, Treatment, Prognosis Departure 1 Departure Time of Disposition: 21:44 Impression: Primary Impression: Flank pain Additional Impressions: Urinary retention Intractable abdominal pain Disposition: ADMITTED INPATIENT Admit to: Med Surg Condition: Fair Critical Care Note Critical Care Time?: No Stability Stability form required: Yes Unstable for transfer: ED Physician Assesment (Clinical assesment) Heart Score Heart Score: Heart Score Response (Comments) Value History N/A 0 EKG N/A 0 Age N/A 0 Risk Factors N/A 0 Troponin N/A 0 Total 0 I personally scribed for SUPA REESE MD ([email or web address]) on 08/03/24 at 14:47. Electronically submitted by Jair Grayson ([email or web address]). I personally scribed for SUPA REESE MD ([email or web address]) on 08/03/24 at 15:52. Electronically submitted by Jair Grayson ([email or web address]). SPUA REESE MD Aug 03, 2024 14:47
--- NOTE | 2024-08-03 15:15 | DVH ---
CT ABDOMEN AND PELVIS WITHOUT CONTRAST CLINICAL HISTORY: flank pain TECHNIQUE: Multiple contiguous axial images of the abdomen and pelvis without intravenous contrast. The images were reformatted degenerate coronal and sagittal reconstructions. All CT scans at this medical facility are performed using dose modulation techniques as appropriate t o a performed exam including the following:Automated exposure control was utilized; adjustment of the MA and/or KV according to patient size; and use of iterative reconstruction technique. Radiation Dose Information: CT Dose: CTDI volume is 26 mGy. Dose-length product is 1561 mGy*cm Comparison: CT CT AB PEL WO CON-NO ORAL OR IV on DOS: 12/30/23, CT CT AB PEL WO CON-NO ORAL OR IV on D OS: 10/02/23 FINDINGS: Evaluation of the abdomen and pelvis is limited without intravenous contrast. There is stable heterogeneous appearance of the bilateral renal parenchyma with poorly defined hypode nse areas bilaterally. There is stable appearing hyperdensity in the left renal pelvis. There is no e vidence of renal calculus or hydronephrosis. The liver, gallbladder, pancreas, adrenal glands, and spleen appear within normal limits. There is no gross evidence of abdominal lymphadenopathy. There is no free fluid or free air. The stomach grossly appears unremarkable. The small and large bowel loops demonstrate normal caliber . The appendix is not readily seen in the right lower quadrant abdomen. There are no secondary findi ngs of acute appendicitis. The abdominal aorta and IVC appear within normal limits. The bladder appears unremarkable for the degree of distention. There is an IUD seen within the uterus .. There is no gross evidence of a pelvic mass. There is no free fluid collection. Lung bases are clear. There is no acute osseous abnormality. IMPRESSION: 1. There is no acute process in the abdomen and pelvis. 2. Stable nonspecific heterogeneous appearance of the kidneys as described above. Clinical correlatio n is recommended. If warranted, further evaluation with CT urogram may be performed. HS:Y
[2024-08-03] MEDS: SODIUM CHLORIDE 0.9% 1,000 ML IVB ONE (15:28)
[2024-08-03 15:44] LABS: Basophils # (auto) 0.1 10 ^3/uL (0-0.2); Basophils % (auto) 0.5 % (0.0-2.0); Eosinophils # (auto) 0.4 10 ^3/uL (0-0.8); Eosinophils % (auto) 3.6 % (0.0-7.0); Hematocrit 37.5 % (36.0-46.0); Hemoglobin 12.1 g/dL (12.2-16.2); Lymphocytes # (auto) 2.7 10 ^3/uL (0.4-5.4); Lymphocytes % (auto) 26.3 % (10.0-50.0); Mean Corpuscular Hemoglobin 23.8 pg (28.0-32.0); Mean Corpuscular Hgb Conc. 32.4 g/dL (32.0-36.0); Mean Corpuscular Volume 73.4 fL (80.0-100.0); Monocytes # (auto) 0.5 10 ^3/uL (0-1.3); Monocytes % (auto) 5.1 % (0.0-12.0); Neutrophils # (auto) 6.7 10 ^3/uL (1.6-8.6); Neutrophils % (auto) 64.5 % (37.0-80.0); Nucleated Red Blood Cells % 0.1 %; Platelet Count (auto) 501 10^3/uL (140-450); Red Blood Cells 5.11 10^6/uL (4.0-5.20); Red Cell Distribution Width 17.6 % (11.8-14.3); White Blood Cell 10.4 10^3/uL (4.4-10.8)
[2024-08-03] MEDS: ONDANSETRON HCL 4 MG/2 ML VIAL IV ONE (15:44)
[2024-08-03] MEDS: MORPHINE SULFATE 4 MG/ML SYR/VIAL IV ONE (15:45)
[2024-08-03 16:01] LABS: Chloride 106 mmol/L (98-107); Potassium 3.8 mmol/L (3.5-5.1); Sodium 139 mmol/L (136-145)
[2024-08-03 16:02] VITALS: RESP 20; O2SAT 100
[2024-08-03 16:02] LABS: Anion Gap 8 (5-15); Calcium 10.2 mg/dL (8.7-10.4); Carbon Dioxide 25 mmol/L (20-31)
[2024-08-03 16:07] LABS: BUN/Creatinine Ratio 18.8 (10.0-20.0); Blood Urea Nitrogen 13 mg/dL (9-23); Glucose 89 mg/dL (74-106)
[2024-08-03] MEDS ORDERED: HYDROcodone-ACET 5/325MG TAB PO PRN (23:45)
[2024-08-03] MEDS ORDERED: ONDANSETRON HCL 4 MG/2 ML VIAL IV PRN (23:45)
[2024-08-03] MEDS ORDERED: ACETAMINOPHEN 325 MG TAB PO PRN (23:45)
--- NOTE | 2024-08-04 00:36 | DVHHP2 ---
History of Present Illness Reason for Visit: Flank pain History of Present Illness 28-year-old female presents for evaluation of bilateral flank pain. Patient endorses a two day history of worsening flank pain with a one day history of urinary retention. She states recently being diagnosed with polycystic kidney disease and is currently under the care of custodial maintenance worker Dr. Dominic Marquis. She reports sharp bilateral flank pain that is nonradiating with associated nausea. Denies fever or chills. No other acute complaints. Past Medical History Anemia, dyslipidemia, polycystic kidney disease Past Surgical History Tonsillectomy and hernia repair Family History Noncontributory Smoke: No ALCOHOL: occassional Drugs: None Review of Systems Review of Systems Review of systems are currently negative otherwise addressed in HPI. Allergies: Coded Allergies: Ibuprofen (Verified Allergy, Severe, 11/27/20) Iodine (Verified Allergy, Unknown, 10/14/21) Valproic Acid (Verified Allergy, Unknown, 02/04/23) Medications Current Medications Medications Dose Ordered Sig/Diann Route Start Time Stop Time Status Last Admin Dose Admin Ceftriaxone Sodium 50 ml @ 100 mls/hr DAILY@2100 IV 08/04/24 00:00 Acetaminophen/ Hydrocodone Bitart 1 tab Q4HP PRN PO 08/03/24 23:45 Ondansetron HCl 4 mg Q4HP PRN IV 08/03/24 23:45 Acetaminophen 650 mg Q6HP PRN PO 08/03/24 23:45 Morphine Sulfate 2 mg Q6HPRN PRN IV 08/03/24 23:45 Exam Vital Signs Vital Signs Date Time Temp Pulse Resp B/P (MAP) Pulse Ox O2 Delivery O2 Flow Rate FiO2 08/03/24 16:30 78 16 123/68 08/03/24 16:02 100 Room Air* 0 21 08/03/24 15:28 98.0 98.0 Exam Gen: 28-year-old female in mild distress Skin: Warm, dry, normal color and texture, no rash. HEENT: Normocephalic atraumatic, mucous membranes moist and pink. Neck: Cervical and supraclavicular nodes normal without enlargement, trachea is midline, thyroid gland is normal without masses. Pulmonary: Clear to auscultation and percussion bilaterally. Cardiac: Regular rate and rhythm. No murmur Abdomen: Soft, nontender, nondistended, bowel sounds present all 4 quadrants, no guarding, no rigidity, no organomegaly. Extremities: No cyanosis, clubbing, no edema Neuro: Cranial nerves II through XII grossly intact, normal affect and speech, no focal motor deficits. Labs/Xrays ORDERING PHYSICIAN: SUPA REESE MD PROCEDURE(s): ABPL - CT AB PEL WO CON-NO ORAL OR IV REASON: flank pain ORDER NUMBER(s): [id number], ACCESSION NUMBER(s): [id number] CT ABDOMEN AND PELVIS WITHOUT CONTRAST CLINICAL HISTORY: flank pain TECHNIQUE: Multiple contiguous axial images of the abdomen and pelvis without intravenous contrast. The images were reformatted degenerate coronal and sagittal reconstructions. All CT scans at this medical facility are performed using dose modulation techniques as appropriate to a performed exam including the following:Automated exposure control was utilized; adjustment of the MA and/or KV according to patient size; and use of iterative reconstruction technique. Radiation Dose Information: CT Dose: CTDI volume is 26 mGy. Dose-length product is 1561 mGy*cm Comparison: CT CT AB PEL WO CON-NO ORAL OR IV on DOS: 12/30/23, CT CT AB PEL WO CON-NO ORAL OR IV on DOS: 10/02/23 FINDINGS: Evaluation of the abdomen and pelvis is limited without intravenous contrast. There is stable heterogeneous appearance of the bilateral renal parenchyma with poorly defined hypodense areas bilaterally. There is stable appearing hyperdensity in the left renal pelvis. There is no evidence of renal calculus or hydronephrosis. The liver, gallbladder, pancreas, adrenal glands, and spleen appear within normal limits. There is no gross evidence of abdominal lymphadenopathy. There is no free fluid or free air. The stomach grossly appears unremarkable. The small and large bowel loops demonstrate normal caliber. The appendix is not readily seen in the right lower quadrant abdomen. There are no secondary findings of acute appendicitis. The abdominal aorta and IVC appear within normal limits. The bladder appears unremarkable for the degree of distention. There is an IUD seen within the uterus.. There is no gross evidence of a pelvic mass. There is no free fluid collection. Lung bases are clear. There is no acute osseous abnormality. IMPRESSION: 1. There is no acute process in the abdomen and pelvis. 2. Stable nonspecific heterogeneous appearance of the kidneys as described above. Clinical correlation is recommended. If warranted, further evaluation with CT urogram may be performed. HS:Y Labs Test 08/03/24 15:16 Range/Units White Blood Count 10.4 4.4-10.8 10^3/uL Red Blood Count 5.11 4.0-5.20 10^6/uL Hemoglobin 12.1 L 12.2-16.2 g/dL Hematocrit 37.5 36.0-46.0 % Mean Corpuscular Volume 73.4 L 80.0-100.0 fL Mean Corpuscular Hemoglobin 23.8 L 28.0-32.0 pg Mean Corpuscular Hemoglobin Concent 32.4 32.0-36.0 g/dL Red Cell Distribution Width 17.6 H 11.8-14.3 % Platelet Count 501 H 140-450 10^3/uL Mean Platelet Volume 6.7 L 6.9-10.8 fL Neutrophils (%) (Auto) 64.5 37.0-80.0 % Lymphocytes (%) (Auto) 26.3 10.0-50.0 % Monocytes (%) (Auto) 5.1 0.0-12.0 % Eosinophils (%) (Auto) 3.6 0.0-7.0 % Basophils (%) (Auto) 0.5 0.0-2.0 % Neutrophils # (Auto) 6.7 1.6-8.6 10 ^3/uL Lymphocytes # (Auto) 2.7 0.4-5.4 10 ^3/uL Monocytes # (Auto) 0.5 0-1.3 10 ^3/uL Eosinophils # (Auto) 0.4 0-0.8 10 ^3/uL Basophils # (Auto) 0.1 0-0.2 10 ^3/uL Nucleated Red Blood Cells 0.1 % Sodium Level 139 136-145 mmol/L Potassium Level 3.8 3.5-5.1 mmol/L Chloride Level 106 98-107 mmol/L Carbon Dioxide Level 25 20-31 mmol/L Anion Gap 8 5-15 Blood Urea Nitrogen 13 9-23 mg/dL Creatinine 0.69 0.550-1.02 mg/dL Glomerular Filtration Rate Calc 120 >90 mL/min BUN/Creatinine Ratio 18.8 10.0-20.0 Serum Glucose 89 74-106 mg/dL Calcium Level 10.2 8.7-10.4 mg/dL Assessment/Plan Assessment/Plan Assessment Acute urinary retention Polycystic kidney disease Turbid obesity Plan Admit the patient to [facility] to the hospitalist Nephrology consultation with Dr. Dominic Marquis Nephrology consultation for urinary retention Pain management Rocephin Continue treatment per orders. Plan discussed with: Patient My Orders Orders - SHARATH SALINAS Procedure Category Date Status Time Dr. Cliff Jones CONS 08/03/24 Transmitted 23:40 Ceftriaxone 1gm/50ml PHA 08/04/24 In Process D5w (Rocephin) 00:00 Basic Metabolic Panel LAB 08/04/24 Logged 04:00 Admit ADMIT 08/03/24 Transmitted 23:40 Renal DIET 08/04/24 Transmitted Standard(2gna,3gk,Lopho) Breakfast Hydrocodone-Acet PHA 08/03/24 In Process 5/325mg Tab ([place] 23:45 Ondansetron Hcl PHA 08/03/24 In Process (Zofran) 23:45 Condition: Stable SHIRLEY 08/03/24 In Process 23:40 Acetaminophen Tablet PHA 08/03/24 In Process (Tylenol Tablet) 23:45 Bedrest With Bathroom SHIRLEY 08/03/24 In Process Privileg 23:40 Morphine Sulfate PHA 08/03/24 In Process Injection 23:45 Kidney US 08/04/24 Taken 00:00 Date of Service: Aug 03, 2024 Billing Provider: SHARATH SALINAS Common Visit Codes: [id number] INP/OBS CARE (MOD) SHARATH SALINAS Aug 04, 2024 00:36
[2024-08-04 00:42] VITALS: TEMP 98.1
--- NOTE | 2024-08-04 00:43 | DVH ---
INDICATION: pkd TECHNIQUE: Multiple real-time sonographic images of the kidneys and bladder were obtained. COMPARISON: None FINDINGS: The right kidney measures 12.5 cm in length. The right renal echogenicity, contour and cortical thick ness are within normal limits. No hydronephrosis . Multiple punctate stones identified. Simple cyst is seen in the right kidney measuring up to 1.6 cm The left kidney measures 11.5 cm in length. The left renal echogenicity, contour, and cortical thickn ess are within normal limits. No hydronephrosis. Multiple punctate stones identified. Simple cyst is seen in the left kidney measuring up to 2.3 cm. No large intraluminal masses are seen in the bladder. Distended bladder with an estimated volume of 838 mL. IMPRESSION: No hydronephrosis. Multiple punctate nonobstructing stones seen in both kidneys. Distended bladder measuring up to 838 mL. Correlate for urinary retention.
[2024-08-04] MEDS: cefTRIAXone 1GM/50ML D5W 50 ML IV SCH (00:49)
[2024-08-04] MEDS: MORPHINE SULFATE INJ 2 MG/ml SYRG IV PRN (00:55)
[2024-08-04 01:01] LABS: Urine Bacteria FEW /hpf (None Seen); Urine Blood Negative /uL (Negative); Urine Clarity Clear (Clear); Urine Color Light-Yellow (Yellow); Urine Hyaline Cast FEW /lpf (0 - 2); Urine Mucus FEW (None Seen); Urine Protein, UAD Negative (Negative); Urine Squamous Epithelial Cell FEW /hpf (<5); Urine Urobilinogen Normal (Negative); Urine WBC 1 /HPF (0-5); Urine pH 5.5 (5.0-9.0)
[2024-08-04 04:00] VITALS: BP 94/51; PULSE 69; RESP 13; O2SAT 96
[2024-08-04 05:49] LABS: Chloride 106 mmol/L (98-107); Sodium 141 mmol/L (136-145)
[2024-08-04 05:50] LABS: Anion Gap 8 (5-15); Carbon Dioxide 27 mmol/L (20-31)
[2024-08-04 05:55] LABS: BUN/Creatinine Ratio 20.8 (10.0-20.0); Blood Urea Nitrogen 15 mg/dL (9-23); Glucose 85 mg/dL (74-106)
[2024-08-04 05:56] LABS: Potassium 3.5 mmol/L (3.5-5.1)
== END 2024-08-04 06:32 | disposition left against medical advice (07) | DRG 463 ==
LOC: ER 12:56 → OVERFLOW 23:40
PROVIDERS: ADMIT Nurse Practitioner; ATTEND Nurse Practitioner
DX: N30.90 Cystitis, unspecified without hematuria (principal); Q61.3 Polycystic kidney, unspecified; E78.5 Hyperlipidemia, unspecified; E66.9 Obesity, unspecified; Z53.29 Procedure and treatment not carried out because of patient's decision for other reasons; Z87.891 Personal history of nicotine dependence; Z88.6 Allergy status to analgesic agent; Z68.42 Body mass index [BMI] 45.0-49.9, adult; Z88.8 Allergy status to other drugs, medicaments and biological substances; Z79.899 Other long term (current) drug therapy
CPT/HCPCS: 36415; 74176; 76775; 80048; 81001; 85025; 96361; 96374; 96375; G0378; J2405

== ENCOUNTER 2025-03-27 16:47 | Inpatient (IN) | payer MEDICAID ==
[~2025-03-27] VITALS: Ht 162.6 cm; Wt 101.0 kg
--- NOTE | 2025-03-27 17:26 | ED.PDOC ---
General HPI Comments This is a 29 year old female presenting to the ED with chief complaint of bilateral flank pain. Patient reports that she has been experiencing bilateral flank pain with associated diarrhea and nausea since yesterday. Patient relays that she has history of polycystic kidney disease, needing [place] 10mg for pain relief, but they have not provided any relief since last night. Patient states she has a Johnson catheter in place at this time, having it replaced 1 week ago, but has had one for the past 1.5 months. Patient denies any vomiting, abdominal pain, dysuria, hematuria, dizziness, fever, or chills. Chief Complaint: Flank Pain Time Seen by MD: 17:23 Primary Care Provider: Hima Forbes notes: Nurses Notes, Medications, Allergies Allergies: Coded Allergies: Ibuprofen (Verified Allergy, Severe, 11/27/20) Iodine (Verified Allergy, Unknown, 10/14/21) Valproic Acid (Verified Allergy, Unknown, 02/04/23) Home Meds Active Scripts Ibuprofen Micronized (MOTRIN TABLET) 600 Mg Tb, 600 MG PO TID PRN, #40 TAB *Black box warning-NSAIDS can increase risk of NM & hypertension, GI irritation, ulceration, bleed, perferation. Do not use post cardiac surgery. Use short duration/lowest effective dose. Prov:DAMON WOOTEN MD 05/02/24 Pantoprazole Sodium Sesquihydr (Protonix) 40 Mg Tab, 40 MG PO DAILY, #30 TAB Prov:HIEN ROACH DO 10/02/23 Reported Medications Atorvastatin Calcium (Lipitor) Unknown Strength Tab, PO DAILY, TAB 02/17/24 Cholecalciferol (D3) Unknown Strength Cap, PO DAILY, CAP 02/17/24 Information Source: Patient Mode of Arrival: Ambulatory Severity: Moderate Timing: Days Duration: Since onset Prehospital treatment: None Onset: Spontaneous History of: Chronic indwelling johnson, Other (Polycystic kidney disease) Location: (R) Flank, (L)Flank Modifying factors: None associated signs and symptoms: Nausea, Flank Pain Past Medical History PAST MEDICAL HISTORY: Anemia, Asthma, Cancer Past Medical History (Other): Leukemia, Ovarian cancer, polycystic kidney disease, polycystic liver disease, Rheumatoid arthritis Surgical History: Hernia Repair, Tonsillectomy Surgical History (Other): Adenoidectomy, brain surgery, laparoscopic surgeries MANAGER EVENT History: Endometriosis, Other Family History Family History: Reviewed,noncontributory to illness Social History Smoker: Quit Less Than 1 Year, Cigarettes Alcohol: Occasionally Drugs: Denies Drug Use Lives In: Home Constitutional: denies: chills, diaphoresis, fatigue, fever, malaise, sweats, weakness, others EENTM: denies: blurred vision, double vision, ear bleeding, ear discharge, ear drainage, ear pain, ear ringing, eye pain, eye redness, hearing loss, mouth pain, mouth swelling, nasal discharge, nose bleeding, nose congestion, nose pain, photophobia, tearing, throat pain, throat swelling, voice changes, others Respiratory: denies: cough, hemoptysis, orthopnea, SOB at rest, shortness of breath, SOB with excertion, stridor, wheezing, others Cardiovascular: denies: chest pain, dizzy spells, diaphoresis, Dyspnea on e xertion, edema, irregular heart beat, left arm pain, lightheadedness, palpitations, PND, syncope, others Gastrointestinal: reports: diarrhea, nausea; denies: abdomen distended, abdominal pain, blood streaked bowels, constipated, dysphagia, difficulty swallowing, hematemesis, melena, poor appetite, poor fluid intake, rectal bleeding, rectal pain, vomiting, others Genitourinary: reports: flank pain; denies: abnormal vagina bleeding, burning, dyspareunia, dysuria, frequency, hematuria, incontinence, pain, , vagina discharge, urgency, others Neurological: denies: dizziness, fainting, headache, left sided numbness, left sided weakness, numbness, paresthesia, pre-existing deficit, right sided numbness, right sided weakness, seizure, speech problems, tingling, tremors, weakness, others Musculoskeletal: denies: back pain, gout, joint pain, joint swelling, muscle pain, muscle stiffness, neck pain, others Integumetry: denies: bruises, change in color, change in hair/nails, dryness, laceration, lesions, lumps, rash, wounds, others Allergic/Immunocompromised: denies: Difficulty Healing, Frequent Infections, Hives, Itching, others Hematologic/Lymphatic: denies: anemia, blood clots, easy bleeding, easy bruising, swollen glands, others Endocrine: denies: excessive hunger, excessive sweating, excessive thirst, excessive urination, flushing, intolerance to cold, intolerance to heat, unexplained weight gain, unexplained weight loss, others Psychiatric: denies: anxiety, bipolar disorder, depression, hopeless, panic d isorder, schizophrenia, sleepless, suicidal, others All Other Systems: Reviewed and Negative Physical Exam General Appearance: No Apparent Distress, Obese HEENT: Other (Pupils and face symmetric. Moist mucous membranes.) Neck: Full Range of Motion, Normal Inspection Respiratory: Lungs Clear, No Accessory Muscle Use, No Respiratory Distress, Normal Breath Sounds Cardiovascular: No Edema, No JVD, Regular Rate/Rhythm Breast Exam: Deferred Gastrointestinal: Soft, Other (Bilateral upper flank and CVA tenderness to palpation) Genitalia: Deferred Pelvic: Deferred Rectal: Deferred Extremities: Normal inspection, Normal range of motion, Non-tender, No pedal edema Neurologic: Alert (Oriented x4), Normal Affect, Normal Mood, Other (Ambulatory) Cerebellar Function: NOT DONE Reflexes: NOT DONE Skin: Dry, Normal Color, Warm Lymphatic: NOT DONE Was a procedure done? Was a procedure done?: No Differential Diagnosis Kidney stone (Female): Musculoskeletal pain, Pyelonephritis, Renal failure, Urinary obstruction, Urolithiasis Other Differential Diagnosis RA related pain, chronic polycystic kidney disease pain exacerbation, among others X-Ray, Labs, Meds, VS Vital Signs Date Time Temp Pulse Resp B/P (MAP) Pulse Ox O2 Delivery O2 Flow Rate FiO2 03/27/25 21:15 89 14 134/74 03/27/25 20:54 89 14 99 Room Air* 0 21 03/27/25 20:53 98.3 89 14 134/74 (94) 99 98.3 03/27/25 16:50 98.3 102 18 121/80 98 98.3 Lab Test 03/27/25 17:40 Range/Units White Blood Count 11.4 H 4.4-10.8 10^3/uL Red Blood Count 5.07 4.0-5.20 10^6/uL Hemoglobin 12.2 12.2-16.2 g/dL Hematocrit 37.6 36.0-46.0 % Mean Corpuscular Volume 74.2 L 80.0-100.0 fL Mean Corpuscular Hemoglobin 24.1 L 28.0-32.0 pg Mean Corpuscular Hemoglobin Concent 32.5 32.0-36.0 g/dL Red Cell Distribution Width 17.7 H 11.8-14.3 % Platelet Count 534 H 140-450 10^3/uL Mean Platelet Volume 6.7 L 6.9-10.8 fL Neutrophils (%) (Auto) 69.6 37.0-80.0 % Lymphocytes (%) (Auto) 23.6 10.0-50.0 % Monocytes (%) (Auto) 3.5 0.0-12.0 % Eosinophils (%) (Auto) 2.6 0.0-7.0 % Basophils (%) (Auto) 0.7 0.0-2.0 % Neutrophils # (Auto) 8.0 1.6-8.6 10 ^3/uL Lymphocytes # (Auto) 2.7 0.4-5.4 10 ^3/uL Monocytes # (Auto) 0.4 0-1.3 10 ^3/uL Eosinophils # (Auto) 0.3 0-0.8 10 ^3/uL Basophils # (Auto) 0.1 0-0.2 10 ^3/uL Nucleated Red Blood Cells 0.0 % Sodium Level 137 136-145 mmol/L Potassium Level 3.6 3.5-5.1 mmol/L Chloride Level 104 98-107 mmol/L Carbon Dioxide Level 22 20-31 mmol/L Anion Gap 11 5-15 Blood Urea Nitrogen 8 L 9-23 mg/dL Creatinine 0.66 0.550-1.02 mg/dL Glomerular Filtration Rate Calc 120 >90 mL/min BUN/Creatinine Ratio 12.1 10.0-20.0 Serum Glucose 96 74-106 mg/dL Lactic Acid Level 0.8 0.4-2.0 mmol/L Calcium Level 10.0 8.7-10.4 mg/dL Total Bilirubin 0.3 0.2-1.0 mg/dL Aspartate Amino Transferase (AST) 11 L 13-40 U/L Alanine Aminotransferase (ALT) 12 7-40 U/L Alkaline Phosphatase 96 46-116 U/L Total Protein 7.8 5.7-8.2 g/dL Albumin 4.7 3.2-4.8 g/dL Current Medications Medications (Trade) Dose Ordered Sig/Diann Route Start Time Stop Time Status Last Admin Sodium Chloride 1,000 ml @ 1,000 mls/hr Q1H ONCE IV 03/27/25 17:15 03/27/25 18:14 DC 03/27/25 21:14 Hydromorphone HCl (Dilaudid Injection) 1 mg ONCE ONCE IV 03/27/25 17:15 03/27/25 17:17 DC 03/27/25 21:15 Ondansetron HCl (Zofran) 4 mg ONCE ONCE IV 03/27/25 17:15 03/27/25 17:17 DC 03/27/25 21:15 PROCEDURE(s): ABPL - CT AB PEL WO CON-NO ORAL OR IV REASON: Bilateral flank pain, history of PCKD ORDER NUMBER(s): [id number], ACCESSION NUMBER(s): [id number] COMPUTERIZED TOMOGRAPHY ABDOMEN AND PELVIS WITHOUT CONTRAST REASON FOR EXAM: Bilateral flank pain, history of PCKD COMPARISON: CT CT AB PEL WO CON-NO ORAL OR IV on DOS: 08/03/24, US PELVIC on DOS: 05/01/24, US PELVIC on DOS: 01/01/24, CT CT AB PEL WO CON-NO ORAL OR IV on DOS: 12/30/23, CT CT AB PEL WO CON-NO ORAL OR IV on DOS: 10/02/23 TECHNIQUE: Spiral scans were acquired from the diaphragm to the symphysis pubis without intravenous contrast administration. 2-D coronal and sagittal reformatted images were provided. Radiation optimization: All CT scans at this facility use at least one of these dose optimization techniques: Automated exposure control mA and/or kV adjustment per patient size (includes targeted exams where dose is matched to clinical indication) or iterative reconstruction. RADIATION DOSE: CTDI: 26 mGy DLP: 1370 mGy-cm FINDINGS: The visualized lung bases are grossly clear. There is no pleural effusion. There is no pericardial effusion. The spleen is not enlarged. The liver is normal in size and contour. There are a few scattered tiny hepatic cysts. No calcified gallstone is identified. Evaluation of the abdominal organs is suboptimal in the absence of intravenous contrast. Unenhanced appearance of the pancreas is grossly unremarkable. The adrenal glands are normal. The kidneys are similar in size. There are scattered hypodensities throughout both kidneys that are too small to characterize and likely represent cysts given the history of polycystic kidney disease. There is a hyperdense 1.5 cm cyst at the interpolar region of the left kidney that is unchanged. There is no hydronephrosis of either kidney. No renal, ureteral, or bladder calculus is identified. The urinary bladder is decompressed about a Johnson catheter balloon. There is an IUD within the uterus. There is a 5.0 cm cyst within the left ovary. There is no free fluid in the abdomen or pelvis. No pathologic lymphadenopathy is identified by size criteria. There is no abdominal aortic aneurysm. The colonic stool burden is small. The appendix is normal. There is no pathologic distention of the small bowel. No acute osseous abnormality is identified. IMPRESSION: No renal, ureteral, or bladder calculus. No hydronephrosis of either kidney. Unchanged appearance of polycystic kidneys. There is a 5.0 cm left ovarian cyst. This may be a cause of pain. Normal appendix X-Ray, Labs, Meds, VS Comment 29-year-old female with a history of polycystic kidney disease, chronic pain, PCOS, polycystic liver disease, RA, asthma and leukemia and ovarian cancer in remission complaining of bilateral flank pain unresponsive to [place] Vitals remarkable for heart rate 102 Exam remarkable for bilateral flank/CVA tenderness to palpation CT abdomen and pelvis IMPRESSION: No renal, ureteral, or bladder calculus. No hydronephrosis of either kidney. Unchanged appearance of polycystic kidneys. There is a 5.0 cm left ovarian cyst. This may be a cause of pain. Normal appendix CBC remarkable for WBC 11.4, CMP unremarkable, lactate normal, UA pending The following was ordered for the patient in the ED: 1 L 0.9 normal saline IV bolus, Dilaudid 1 mg IV, Zofran 4 mg IV On re-evaluation at 7:36 p.m., patient is still had not been medicated, so was still having pain. Plan is to admit the patient for pain control. Time of 1ST Reevaluation: 18:21 Reevaluation 1ST: Unchanged Patient Education/Counseling: Diagnosis, Treatment Family Education/Counseling: No Family Present SEPSIS Sepsis Screen Date sepsis recognized/suspect: Mar 27, 2025 Time Sepsis recognized/suspect: 1649 Recent Procedure: No On Antibiotic Therapy: No Respiratory Rate >20: No Heart Rate >90: Yes Temp<36 C (96.8 F) or >38.3 C: No SBP <90 or MAP <65 mmHG: No New Acute Mental Status Change: No Is the patient on CPAP, BIPAP,: No SEPSIS EXCLUSION NOTE: Sepsis Exclusion Note: Patient presents with SIRS criteria, but the SIRS response is attributed to pain ], not sepsis. Sepsis bundle is not initiated at this time, due to this reason. Further management will focus on the treatment of the above condition (s). Physician Orders Urinalysis (03/27/25 17:15) Ct Ab Pel Wo Con-No Oral Or Iv (03/27/25 17:15) Blood Culture (03/27/25 17:15) Urine Bacterial Culture (03/27/25 17:15) Vital Signs Date Time Temp Pulse Resp B/P (MAP) Pulse Ox O2 Delivery O2 Flow Rate FiO2 03/27/25 21:15 89 14 134/74 03/27/25 20:54 89 14 99 Room Air* 0 21 03/27/25 20:53 98.3 89 14 134/74 (94) 99 98.3 03/27/25 16:50 98.3 102 18 121/80 98 98.3 Laboratory Tests Test 03/27/25 17:40 Lactic Acid Level 0.8 mmol/L (0.4-2.0) White Blood Count 11.4 10^3/uL (4.4-10.8) H Medications Medications Dose Ordered Sig/Diann Route Start Time Stop Time Status Last Admin Dose Admin Hydromorphone HCl 1 mg ONCE ONCE IV 03/27/25 17:15 03/27/25 17:17 DC 03/27/25 21:15 Ondansetron HCl 4 mg ONCE ONCE IV 03/27/25 17:15 03/27/25 17:17 DC 03/27/25 21:15 Sodium Chloride 1,000 ml @ 1,000 mls/hr Q1H ONCE IV 03/27/25 17:15 03/27/25 18:14 DC 03/27/25 21:14 Departure 1 Departure Time of Disposition: 19:36 Impression: Primary Impression: Flank pain Additional Impression: Intractable pain Disposition: ADMITTED INPATIENT Admit to: Med Surg Condition: Fair Critical Care Note Critical Care Time?: No Stability Stability form required: No Heart Score Heart Score: Heart Score Response (Comments) Value History N/A 0 EKG N/A 0 Age N/A 0 Risk Factors N/A 0 Troponin N/A 0 Total 0 I personally scribed for AR WONG MD ([email or web address]) on 03/27/25 at 17:26. Electronically submitted by Aneudy Perez ([email or web address]). AR WONG MD Mar 27, 2025 17:26
[2025-03-27 17:59] LABS: Hemoglobin 12.2 g/dL (12.2-16.2); Nucleated Red Blood Cells % 0.0 %
[2025-03-27 18:00] LABS: Hematocrit 37.6 % (36.0-46.0); Mean Corpuscular Hemoglobin 24.1 pg (28.0-32.0); Mean Corpuscular Volume 74.2 fL (80.0-100.0)
[2025-03-27 18:10] LABS: Alanine Aminotransferase 12 U/L (7-40); Alkaline Phosphatase 96 U/L (46-116); Anion Gap 11 (5-15); BUN/Creatinine Ratio 12.1 (10.0-20.0); Calcium 10.0 mg/dL (8.7-10.4); Carbon Dioxide 22 mmol/L (20-31); Chloride 104 mmol/L (98-107); Glucose 96 mg/dL (74-106); Potassium 3.6 mmol/L (3.5-5.1); Sodium 137 mmol/L (136-145); Total Protein 7.8 g/dL (5.7-8.2)
[2025-03-27 18:11] LABS: Albumin 4.7 g/dL (3.2-4.8); Bilirubin, Total 0.3 mg/dL (0.2-1.0)
[2025-03-27 18:27] LABS: Blood Urea Nitrogen 8 mg/dL (9-23)
[2025-03-27 20:53] VITALS: TEMP 98.3
[2025-03-27 20:54] VITALS: PULSE 89; RESP 14; O2SAT 99
[2025-03-27] MEDS: SODIUM CHLORIDE 0.9% 1,000 ML IV ONE (21:14)
[2025-03-27] MEDS: HYDROmorphone HCL 2 MG/ML VL/or syr IV ONE (21:15)
[2025-03-27] MEDS: ONDANSETRON HCL 4 MG/2 ML VIAL IV ONE (21:15)
--- NOTE | 2025-03-27 21:51 | DVH ---
COMPUTERIZED TOMOGRAPHY ABDOMEN AND PELVIS WITHOUT CONTRAST REASON FOR EXAM: Bilateral flank pain, history of PCKD COMPARISON: CT CT AB PEL WO CON-NO ORAL OR IV on DOS: 08/03/24, US PELVIC on DOS: 05/01/24, US PELVIC on DOS: 01/01/24, CT CT AB PEL WO CON-NO ORAL OR IV on DOS: 12/30/23, CT CT AB PEL WO CON-NO ORAL OR IV on DOS: 10/02/23 TECHNIQUE: Spiral scans were acquired from the diaphragm to the symphysis pubis without intravenous c ontrast administration. 2-D coronal and sagittal reformatted images were provided. Radiation optimiza tion: All CT scans at this facility use at least one of these dose optimization techniques: Automated exposure control mA and/or kV adjustment per patient size (includes targeted exams where dose is mat ched to clinical indication) or iterative reconstruction. RADIATION DOSE: CTDI: 26 mGy DLP: 1370 mGy-cm FINDINGS: The visualized lung bases are grossly clear. There is no pleural effusion. There is no pericardial e ffusion. The spleen is not enlarged. The liver is normal in size and contour. There are a few scattered tiny hepatic cysts. No calcified gallstone is identified. Evaluation of the abdominal organs is suboptimal in the absence of intravenous contrast. Unenhanced appearance of the pancreas is grossly unremarkabl e. The adrenal glands are normal. The kidneys are similar in size. There are scattered hypodensities throughout both kidneys that are too small to characterize and likely represent cysts given the histo ry of polycystic kidney disease. There is a hyperdense 1.5 cm cyst at the interpolar region of the le ft kidney that is unchanged. There is no hydronephrosis of either kidney. No renal, ureteral, or blad vivian calculus is identified. The urinary bladder is decompressed about a Smith catheter balloon. There is an IUD within the uterus. There is a 5.0 cm cyst within the left ovary. There is no free fluid in the abdomen or pelvis. No pathologic lymphadenopathy is identified by size criteria. There is no ab dominal aortic aneurysm. The colonic stool burden is small. The appendix is normal. There is no patho logic distention of the small bowel. No acute osseous abnormality is identified. IMPRESSION: No renal, ureteral, or bladder calculus. No hydronephrosis of either kidney. Unchanged appearance of polycystic kidneys. There is a 5.0 cm left ovarian cyst. This may be a cause of pain. Normal appendix
[2025-03-27] MEDS ORDERED: ACETAMINOPHEN 325 MG TAB PO PRN (22:15)
[2025-03-27] MEDS ORDERED: ONDANSETRON HCL 4 MG/2 ML VIAL IV PRN (22:15)
[2025-03-27 22:51] LABS: Magnesium 1.7 mg/dL (1.6-2.6)
[2025-03-27 22:52] LABS: HDL Cholesterol 45.0 mg/dL (40-59); Triglycerides 353.0 mg/dL (< 150)
[2025-03-27 22:53] LABS: Cholesterol 207.0 mg/dL (< 200)
[2025-03-27 23:04] LABS: Lipase 30.0 U/L (12-53)
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
[2025-03-27 23:09] LABS: INR 1.02 (0.9-1.15); Partial Thromboplastin Time 35.0 SEC (24.5-34.5); Prothrombin Time 10.8 sec (9.3-11.8)
[2025-03-27 23:12] LABS: Amphetamine Screen, Urine Neg (NEGATIVE)
[2025-03-27 23:13] LABS: Barbiturate Scree,Urine Neg (NEGATIVE); Benzodiazephine Screen, Urine Neg (NEGATIVE); Cannabinoid Screen, Urine Neg (NEGATIVE); Cocaine Screen, Urine Neg (NEGATIVE); Opiate Scree,Urine Pos (NEGATIVE); Phencyclidine Screen, Urine Neg (NEGATIVE)
[2025-03-27 23:14] LABS: Urine Protein, UAD Negative (Negative)
--- NOTE | 2025-03-28 00:47 | DVH ---
INDICATION: Rule out nephrolithiasis TECHNIQUE: Multiple real-time sonographic images of the kidneys and bladder were obtained. COMPARISON: US PELVIC on DOS: 03/28/25, US KIDNEY on DOS: 08/04/24, US PELVIC on DOS: 05/01/24, US PELV IC on DOS: 01/01/24, CT ABD PELVIS WO CONTRAST on DOS: 03/09/22 FINDINGS: RIGHT kidney measures 14.1 cm in length. No stones or hydronephrosis. Few scattered appearing cysts measuring up to 1.7 cm. LEFT kidney measures 11.2 cm in length. No stones or hydronephrosis. Few scattered simple appearing cysts measuring up to 2.2 cm. Smith catheter in situs, limiting assessment of the urinary bladder. IMPRESSION: 1. Unremarkable examination.
--- NOTE | 2025-03-28 00:53 | DVH ---
INDICATION: Ovarian cyst TECHNIQUE: Multiple real-time grayscale transabdominal sonographic images along with color and duplex doppler of the uterus and ovaries were obtained. COMPARISON: CT CT AB PEL WO CON-NO ORAL OR IV on DOS: 03/27/25, CT CT AB PEL WO CON-NO ORAL OR IV on D OS: 08/03/24, US PELVIC on DOS: 05/01/24, US PELVIC on DOS: 01/01/24, CT CT AB PEL WO CON-NO ORAL OR IV on DOS: 12/30/23 FINDINGS: The uterus measures 6.9 X 5.0 X 4.9 cm. The endometrial stripe measures 0.7 cm. I appears well positioned Right ovary measures 4.3 X 2.2 X 3.9 cm with normal Doppler color flow review small follicles measuri ng up to 0.7 cm Left ovary measures 5.7 X 4.1 X 3.3 cm with normal Doppler color flow simple appearing cyst measurin g 3.7 cm. IMPRESSION: Simple appearing left ovarian cyst measuring 3.7 cm. IUD in situs.
[2025-03-28 01:48] VITALS: O2SAT 99
[2025-03-28 01:52] VITALS: BP 119/68; PULSE 68; RESP 19
[2025-03-28] MEDS: MORPHINE SULFATE INJ 2 MG/ml SYRG IV PRN (01:52)
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
[2025-03-28] MEDS ORDERED: ENOXAPARIN SOD 40 MG/0.4 ML SYRINGE SC SCH (10:00)
== END 2025-03-28 02:35 | disposition left against medical advice (07) | DRG 532 ==
LOC: ER 16:47 → OVERFLOW 22:04 → EAST 23:48 → OVERFLOW 03-28 02:01
PROVIDERS: ADMIT Student in an Organized Health Care Education/Training Program; ATTEND Emergency Medicine
DX: N83.202 Unspecified ovarian cyst, left side (principal); D72.829 Elevated white blood cell count, unspecified; J45.909 Unspecified asthma, uncomplicated; Z53.29 Procedure and treatment not carried out because of patient's decision for other reasons; D75.839 Thrombocytosis, unspecified; G43.909 Migraine, unspecified, not intractable, without status migrainosus; E66.01 Morbid (severe) obesity due to excess calories; F11.20 Opioid dependence, uncomplicated; Q61.3 Polycystic kidney, unspecified; Z85.43 Personal history of malignant neoplasm of ovary; Z85.6 Personal history of leukemia; Z88.6 Allergy status to analgesic agent; Z88.8 Allergy status to other drugs, medicaments and biological substances; Z91.041 Radiographic dye allergy status; Z87.891 Personal history of nicotine dependence; Z83.3 Family history of diabetes mellitus; Z80.3 Family history of malignant neoplasm of breast; Z80.8 Family history of malignant neoplasm of other organs or systems; Z82.3 Family history of stroke; Z82.49 Family history of ischemic heart disease and other diseases of the circulatory system; Z68.38 Body mass index [BMI] 38.0-38.9, adult
CPT/HCPCS: 36415; 74176; 76775; 76830; 76856; 80053; 80061; 80307; 81001; 82306; 82607; 83036; 83605; 83690; 83735; 84100; 84443; 84702; 85025; 85610; 85730; 87040; 87086; 96361; 96374; 96375; G0378; J2405

== ENCOUNTER 2025-04-01 20:34 | Emergency (ER) | payer MEDICAID ==
[~2025-04-01] VITALS: Ht 157.5 cm; Wt 101.0 kg
--- NOTE | 2025-04-01 20:54 | ED.PDOC ---
General HPI Comments This is a severely morbidly obese 29 year-old female who presents to the ED via EMS with a chief complaint of bilateral flank pain with associated symptoms of hematuria as of x1 week ago. Patient reports being diagnosed with an 11mm kidney stone at [facility] about X1 week ago. Patient states flank pain is a 10/10, with no known associated relieving factors. Patients vitals are stable at this time. Patient has no further complaints at this time and otherwise denies further associated symptoms of dysuria, N/V/D, abdominal pain, chest pain, headache, or weakness. Chief Complaint: Flank Pain Time Seen by MD: 20:46 Primary Care Provider: Hima Reviewed notes: Nurses Notes, Mirror Silverer Notes, Medications, Allergies Allergies: Coded Allergies: Ibuprofen (Verified Allergy, Severe, 11/27/20) Iodine (Verified Allergy, Unknown, 10/14/21) Valproic Acid (Verified Allergy, Unknown, 02/04/23) Home Meds Active Scripts Ibuprofen Micronized (MOTRIN TABLET) 600 Mg Tb, 600 MG PO TID PRN, #40 TAB *Black box warning-NSAIDS can increase risk of [place] & hypertension, GI irritation, ulceration, bleed, perferation. Do not use post cardiac surgery. Use short duration/lowest effective dose. Prov:DAMON WOOTEN MD 05/02/24 Pantoprazole Sodium Sesquihydr (Protonix) 40 Mg Tab, 40 MG PO DAILY, #30 TAB Prov:HIEN ROACH DO 10/02/23 Reported Medications Atorvastatin Calcium (Lipitor) Unknown Strength Tab, PO DAILY, TAB 02/17/24 Cholecalciferol (D3) Unknown Strength Cap, PO DAILY, CAP 02/17/24 Information Source: Patient, Emergency Med Personnel Mode of Arrival: EMS Severity: Moderate Timing: Days Duration: Since onset Prehospital treatment: None Onset: Spontaneous Location: (R) Flank, (L)Flank associated signs and symptoms: Flank Pain, Hematuria Past Medical History PAST MEDICAL HISTORY: Anemia, Asthma, Cancer Past Medical History (Other): Leukemia, Ovarian cancer, polycystic kidney disease, polycystic liver disease, Rheumatoid arthritis Surgical History: Hernia Repair, Tonsillectomy Surgical History (Other): Adenoidectomy, brain surgery, laparoscopic surgeries 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: Endometriosis, Other Family History Family History: Reviewed,noncontributory to illness Social History Smoker: Quit Less Than 1 Year, Cigarettes Alcohol: Occasionally Drugs: Denies Drug Use Lives In: Home Constitutional: denies: chills, diaphoresis, fatigue, fever, malaise, sweats, weakness, others EENTM: denies: blurred vision, double vision, ear bleeding, ear discharge, ear drainage, ear pain, ear ringing, eye pain, eye redness, hearing loss, mouth chani n, mouth swelling, nasal discharge, nose bleeding, nose congestion, nose pain, photophobia, tearing, throat pain, throat swelling, voice changes, others Respiratory: denies: cough, hemoptysis, orthopnea, SOB at rest, shortness of breath, SOB with excertion, stridor, wheezing, others Cardiovascular: denies: chest pain, dizzy spells, diaphoresis, Dyspnea on exertion, edema, irregular heart beat, left arm pain, lightheadedness, palpitations, PND, syncope, others Gastrointestinal: denies: abdomen distended, abdominal pain, blood streaked bowels, constipated, diarrhea, dysphagia, difficulty swallowing, hematemesis, melena, nausea, poor appetite, poor fluid intake, rectal bleeding, rectal pain, vomiting, others Genitourinary: reports: flank pain, hematuria; denies: abnormal vagina bleeding, burning, dyspareunia, dysuria, frequency, incontinence, pain, , vagina discharge, urgency, others Neurological: denies: dizziness, fainting, headache, left sided numbness, left sided weakness, numbness, paresthesia, pre-existing deficit, right sided numbness, right sided weakness, seizure, speech problems, tingling, tremors, weakness, others Musculoskeletal: denies: back pain, gout, joint pain, joint swelling, muscle pain, muscle stiffness, neck pain, others Integumetry: denies: bruises, change in color, change in hair/nails, dryness, laceration, lesions, lumps, rash, wounds, others Allergic/Immunocompromised: denies: Difficulty Healing, Frequent Infections, Hives, Itching, others Hematologic/Lymphatic: denies: anemia, blood clots, easy bleeding, easy bruising, swollen glands, others Endocrine: denies: excessive hunger, excessive sweating, excessive thirst, excessive urination, flushing, intolerance to cold, intolerance to heat, unexplained weight gain, unexplained weight loss, others Psychiatric: denies: anxiety, bipolar disorder, depression, hopeless, panic disorder, schizophrenia, sleepless, suicidal, others All Other Systems: Reviewed and Negative Physical Exam General Appearance: Moderate Distress (Was in moderate distress due to bilateral flank pain concerns.), Obese HEENT: Normal ENT Inspection, Pharynx Normal, TMs Normal Neck: Full Range of Motion, Non-Tender, Normal, Normal Inspection Respiratory: Chest Non-Tender, Lungs Clear, No Accessory Muscle Use, No Respiratory Distress, Normal Breath Sounds Cardiovascular: No Edema, No JVD, No Murmur, No Gallop, Normal Peripheral Pulses, Regular Rate/Rhythm Breast Exam: Deferred Gastrointestinal: Other (Bilateral diffuse CVA tenderness that has nonspecific. Difficult to assess due to body habitus. No signs of trauma.) Genitalia: Deferred Pelvic: Deferred Rectal: Deferred Extremities: No calf tenderness, Normal capillary refill, Normal inspection, Normal range of motion, Non-tender, No pedal edema Neurologic: Alert Cerebellar Function: NOT DONE Reflexes: NOT DONE Skin: Dry, Normal Color, Warm Lymphatic: No Adenopathy Was a procedure done? Was a procedure done?: No Differential Diagnosis Kidney stone (Female): Pancreatitis, Strain, Urinary obstruction, Urolithiasis, Other (Polycystic kidney disease) X-Ray, Labs, Meds, VS Vital Signs Date Time Temp Pulse Resp B/P (MAP) Pulse Ox O2 Delivery O2 Flow Rate FiO2 04/01/25 23:16 77 16 133/88 04/01/25 23:16 98.6 77 16 133/88 (103) 98 98.6 04/01/25 20:46 98.6 96 18 125/82 99 98.6 Lab Test 04/01/25 20:59 04/01/25 20:54 04/01/25 20:51 Range/Units Lactic Acid Level 1.3 0.4-2.0 mmol/L White Blood Count 12.7 H 4.4-10.8 10^3/uL Red Blood Count 4.75 4.0-5.20 10^6/uL Hemoglobin 11.2 L 12.2-16.2 g/dL Hematocrit 34.4 L 36.0-46.0 % Mean Corpuscular Volume 72.5 L 80.0-100.0 fL Mean Corpuscular Hemoglobin 23.6 L 28.0-32.0 pg Mean Corpuscular Hemoglobin Concent 32.6 32.0-36.0 g/dL Red Cell Distribution Width 17.3 H 11.8-14.3 % Platelet Count 528 H 140-450 10^3/uL Mean Platelet Volume 6.7 L 6.9-10.8 fL Neutrophils (%) (Auto) 69.0 37.0-80.0 % Lymphocytes (%) (Auto) 23.6 10.0-50.0 % Monocytes (%) (Auto) 4.7 0.0-12.0 % Eosinophils (%) (Auto) 2.0 0.0-7.0 % Basophils (%) (Auto) 0.7 0.0-2.0 % Neutrophils # (Auto) 8.8 H 1.6-8.6 10 ^3/uL Lymphocytes # (Auto) 3.0 0.4-5.4 10 ^3/uL Monocytes # (Auto) 0.6 0-1.3 10 ^3/uL Eosinophils # (Auto) 0.3 0-0.8 10 ^3/uL Basophils # (Auto) 0.1 0-0.2 10 ^3/uL Nucleated Red Blood Cells 0.1 % Sodium Level 138 136-145 mmol/L Potassium Level 3.8 3.5-5.1 mmol/L Chloride Level 104 98-107 mmol/L Carbon Dioxide Level 25 20-31 mmol/L Anion Gap 9 5-15 Blood Urea Nitrogen 10 9-23 mg/dL Creatinine 0.76 0.550-1.02 mg/dL Glomerular Filtration Rate Calc 107 >90 mL/min BUN/Creatinine Ratio 13.2 10.0-20.0 Serum Glucose 88 74-106 mg/dL Calcium Level 9.3 8.7-10.4 mg/dL Lipase 45 12-53 U/L Urine Color Light-yellow Yellow Urine Clarity Clear Clear Urine pH 6.5 5.0-9.0 Urine Specific [place] 1.017 1.001-1.035 Urine Protein Negative Negative Urine Ketones Negative Negative Urine Blood 1+ H Negative /uL Urine Nitrite 2+ H Negative Urine Bilirubin Negative Negative Urine Urobilinogen Normal Negative mg/dL Urine Leukocyte Esterase Negative Negative /uL Urine RBC 62 0 - 4 /hpf Urine Microscopic WBC 1 0-5 /HPF Urine Squamous Epithelial Cells Few <5 /hpf Urine Bacteria None seen None Seen /hpf Urine Yeast (Budding) Occasional None Seen /hpf Urine Glucose Normal Normal mg/dL Current Medications Medications (Trade) Dose Ordered Sig/Diann Route Start Time Stop Time Status Last Admin Hydromorphone HCl (Dilaudid Injection) 0.5 mg ONCE ONCE IV 04/01/25 21:00 04/01/25 21:01 DC 04/01/25 23:16 Ondansetron HCl (Zofran) 4 mg ONCE ONCE IV 04/01/25 21:00 04/01/25 21:01 DC 04/01/25 23:13 X-Ray, Labs, Meds, VS Comment All studies performed the ED were evaluated by me personally. Serum studies were unremarkable for any acute concerns. Mild edema appreciated. Urinalysis did not reveal a urinary tract infection, but did have some RBC deposition. CT of the abdomen and pelvis was unremarkable for any acute pelvic findings. Polycystic kidney disease was noted. Advised patient to follow up with her primary care provider for nephrology referral and evaluation to address her polycystic kidney concerns. Images Reviewed?: Images reviewed and evaluated by me Time of 1ST Reevaluation: 23:56 Reevaluation 1ST: Improved Consultation: PCP, Other (Nephrology) Patient Education/Counseling: Diagnosis, Treatment Family Education/Counseling: Diagnosis, Treatment, No Family Present Medical Screening: No EMC Exist At This Time SEPSIS Sepsis Screen Recent Procedure: No On Antibiotic Therapy: No Respiratory Rate >20: No Heart Rate >90: No Temp<36 C (96.8 F) or >38.3 C: No SBP <90 or MAP <65 mmHG: No New Acute Mental Status Change: No Is the patient on CPAP, BIPAP,: No Physician Orders Ct Ab Pel Wo Con-No Oral Or Iv (04/01/25 20:51) Heplock Iv (04/01/25 ) Vital Signs Date Time Temp Pulse Resp B/P (MAP) Pulse Ox O2 Delivery O2 Flow Rate FiO2 04/01/25 23:16 77 16 133/88 04/01/25 23:16 98.6 77 16 133/88 (103) 98 98.6 04/01/25 20:46 98.6 96 18 125/82 99 98.6 Laboratory Tests Test 04/01/25 20:54 04/01/25 20:59 White Blood Count 12.7 10^3/uL (4.4-10.8) H Lactic Acid Level 1.3 mmol/L (0.4-2.0) Medications Medications Dose Ordered Sig/Diann Route Start Time Stop Time Status Last Admin Dose Admin Hydromorphone HCl 0.5 mg ONCE ONCE IV 04/01/25 21:00 04/01/25 21:01 DC 04/01/25 23:16 Ondansetron HCl 4 mg ONCE ONCE IV 04/01/25 21:00 04/01/25 21:01 DC 04/01/25 23:13 Departure 1 Departure Time of Disposition: 23:57 Impression: Primary Impression: Polycystic kidney disease Disposition: HOME / SELF CARE / HOMELESS Condition: Stable Additional Instructions: Advised pain medication as needed for symptomatic relief as well as follow up with Nephrology for continued management of polycystic kidney concerns. e-Prescriptions Hydrocodone-Acetaminophen (Hydrocodone Bitartrate/AC 10-325 mg) 1 Tab Tab 1 TAB PO Q8HP PRN, #15 TAB Prov: AURA TEIXEIRA PAC 04/01/25 Discharged With: Self, Friend Critical Care Note Critical Care Time?: No Stability Stability form required: No Heart Score Heart Score: Heart Score Response (Comments) Value History N/A 0 EKG N/A 0 Age N/A 0 Risk Factors N/A 0 Troponin N/A 0 Total 0 I personally scribed for AURA TEIXEIRA PAC ([email or web address]) on 04/01/25 at 20:54. Electronically submitted by Carey Hdz ([email or web address]). I personally scribed for AURA TEIXEIRA PAC ([email or web address]) on 04/01/25 at 20:58. Electronically submitted by Carey [email or web address]). AURA TEIXEIRA PAC Apr 01, 2025 20:54
[2025-04-01 21:21] LABS: Hematocrit 34.4 % (36.0-46.0); Hemoglobin 11.2 g/dL (12.2-16.2); Mean Corpuscular Hemoglobin 23.6 pg (28.0-32.0); Mean Corpuscular Volume 72.5 fL (80.0-100.0); Nucleated Red Blood Cells % 0.1 %
[2025-04-01 21:27] LABS: Chloride 104 mmol/L (98-107); Potassium 3.8 mmol/L (3.5-5.1); Sodium 138 mmol/L (136-145)
[2025-04-01 21:28] LABS: Anion Gap 9 (5-15); Carbon Dioxide 25 mmol/L (20-31)
[2025-04-01 21:29] LABS: Calcium 9.3 mg/dL (8.7-10.4)
[2025-04-01 21:33] LABS: BUN/Creatinine Ratio 13.2 (10.0-20.0); Blood Urea Nitrogen 10 mg/dL (9-23); Glucose 88 mg/dL (74-106)
[2025-04-01 21:50] LABS: Lipase 45 U/L (12-53)
--- NOTE | 2025-04-01 22:00 | DVH ---
Exam: CT CT AB PEL WO CON-NO ORAL OR IV History: Flank pain Comparison Study: US PELVIC on DOS: 03/28/25, CT CT AB PEL WO CON-NO ORAL OR IV on DOS: 03/27/25, CT CT AB PEL WO CON-NO ORAL OR IV on DOS: 08/03/24, US PELVIC on DOS: 05/01/24, US PELVIC on DOS: 01/01/24 Technique: Multidetector spiral CT of the abdomen was performed from lung bases to pubic symphysis. I maging was performed without IV contrast. Axial, coronal and sagittal multiplanar reformats were obta ined from the axial data set by the technologist. Radiation dose : 1. Abdomen/Pelvis: CTDIvol 24.44 mGy, DLP 1613.36 mGy*cm. Findings: Evaluation of solid organs is limited due to lack of intravenous contrast use. Lung Bases: No acute or significant lung base finding. Normal heart size. No pleural or pericardial effusion. Liver: The liver is normal in size. You small renal cysts. Gallbladder and biliary Tree: Unremarkable Spleen: Unremarkable Pancreas: The pancreas is grossly normal in appearance. Adrenal Glands: Unremarkable Kidneys: Polycystic kidneys, some again appearing hyperdense. No stones or hydronephrosis. Bladder: Grossly unremarkable for degree of distention. Smith catheter. Bowel: The stomach is grossly normal in appearance. Small bowel and colon are normal in caliber and d istribution. Normal appendix is visualized in the right lower quadrant without findings of appendicit is. Ascites: Absent Lymphadenopathy: No mesenteric, retroperitoneal or periportal lymphadenopathy. Abdominal wall and Mesentery: Unremarkable. Vasculature: The visualized abdominal aorta is normal in size and caliber. Evaluation of abdominal a nd pelvic vessels is limited due to lack of intravenous contrast. Pelvic Organs: IUD. Musculoskeletal: No aggressive focal bony lesions, acute fractures or dislocation. IMPRESSION: No acute abdominal or pelvic findings. Polycystic kidneys. Radiation optimization: All CT scans at this facility use at least one of these dose optimization alex hniques: automated exposure control mA and/or kV adjustment per patient size (includes targeted exam s where dose is matched to clinical indication) or iterative reconstruction.
[2025-04-01] MEDS: ONDANSETRON HCL 4 MG/2 ML VIAL IV ONE (23:13)
[2025-04-01 23:16] VITALS: BP 133/88; PULSE 77; RESP 16; TEMP 98.6; O2SAT 98
[2025-04-01] MEDS: HYDROmorphone HCL 2 MG/ML VL/or syr IV ONE (23:16)
[2025-04-01 23:41] LABS: Urine Budding Yeast OCCASIONAL /hpf (None Seen); Urine Protein, UAD Negative (Negative)
[2025-04-01] MEDS ORDERED: HYDR-4798 PO (23:58)
== END 2025-04-01 23:59 | disposition home or self-care (01) ==
LOC: EDUNIT# 20:34 → EDBD 20:34 → ER 20:34
DX: Q61.3 Polycystic kidney, unspecified (principal); J45.909 Unspecified asthma, uncomplicated; Z98.890 Other specified postprocedural states; Z90.89 Acquired absence of other organs; Z88.8 Allergy status to other drugs, medicaments and biological substances; Z88.6 Allergy status to analgesic agent; Z79.899 Other long term (current) drug therapy
CPT/HCPCS: 36415; 74176; 80048; 81001; 83605; 83690; 85025; 96374; 96375; 99285; J1171; J2405

== ENCOUNTER 2025-04-06 20:11 | Emergency (ER) | payer MEDICAID ==
[~2025-04-06] VITALS: Ht 170.2 cm; Wt 90.9 kg
[~2025-04-06 20:11] MED LIST changes: +HYDR-4798 PO
[2025-04-06] MEDS: HYDROcodone-ACET 10/325MG TAB PO ONE (21:28)
[2025-04-06 21:42] LABS: Urine Protein, UAD Negative (Negative)
[2025-04-06] MEDS ORDERED: TRAM-626 PO (22:27)
--- NOTE | 2025-04-06 22:27 | ED.PDOC ---
History of Present Illness HPI Comments This patient is a obese 29-year-old female who arrives to the ED today via EMS for complaints of Smith catheter concerns. Patient states she was at home when she bent over and felt a pop with respect to her Smith catheter. Patient has a catheter due to renal concerns. Patient is being seen by a urologist. Patient denies any fever nausea or vomiting. Vital signs were stable. Chief Complaint: Tube Replacement Time Seen by MD: 20:12 Primary Care Provider: iHma Reviewed Notes: Nurses Notes, Carriage Rider Notes Allergies: Coded Allergies: Ibuprofen (Verified Allergy, Severe, 11/27/20) Iodine (Verified Allergy, Unknown, 10/14/21) Valproic Acid (Verified Allergy, Unknown, 02/04/23) Home Meds Active Scripts Hydrocodone-Acetaminophen (Hydrocodone Bitartrate/AC 10-325 mg) 1 Tab Tab, 1 TAB PO Q8HP PRN, #15 TAB Prov:AURA TEIXEIRA PAC 04/01/25 Ibuprofen Micronized (MOTRIN TABLET) 600 Mg Tb, 600 MG PO TID PRN, #40 TAB *Black box warning-NSAIDS can increase risk of [place] & hypertension, GI irritation, ulceration, bleed, perferation. Do not use post cardiac surgery. Use short duration/lowest effective dose. Prov:DAMON WOOTEN MD 05/02/24 Pantoprazole Sodium Sesquihydr (Protonix) 40 Mg Tab, 40 MG PO DAILY, #30 TAB Prov:HIEN ROACH DO 10/02/23 Reported Medications Atorvastatin Calcium (Lipitor) Unknown Strength Tab, PO DAILY, TAB 02/17/24 Cholecalciferol (D3) Unknown Strength Cap, PO DAILY, CAP 02/17/24 Information Source: Patient, Emergency Med Personnel Mode of Arrival: EMS Severity: Moderate Timing: Minutes Duration: Since onset Prehospital treatment: None Past Medical History PAST MEDICAL HISTORY: Anemia, Asthma, Cancer Past Medical History (Other): History of renal concerns Surgical History: Hernia Repair, Tonsillectomy 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: Endometriosis, Other Family History Family History: Reviewed,noncontributory to illness Social History Smoker: Quit Less Than 1 Year, Cigarettes Alcohol: Occasionally Drugs: Denies Drug Use Lives In: Home Constitutional: denies: chills, diaphoresis, fatigue, fever, malaise, sweats, weakness, others EENTM: denies: blurred vision, double vision, ear bleeding, ear discharge, ear drainage, ear pain, ear ringing, eye pain, eye redness, hearing loss, mouth pa in, mouth swelling, nasal discharge, nose bleeding, nose congestion, nose pain, photophobia, tearing, throat pain, throat swelling, voice changes, others Respiratory: denies: cough, hemoptysis, orthopnea, SOB at rest, shortness of breath, SOB with excertion, stridor, wheezing, others Cardiovascular: denies: chest pain, dizzy spells, diaphoresis, Dyspnea on exertion, edema, irregular heart beat, left arm pain, lightheadedness, palpitations, PND, syncope, others Gastrointestinal: denies: abdomen distended, abdominal pain, blood streaked bowels, constipated, diarrhea, dysphagia, difficulty swallowing, hematemesis, melena, nausea, poor appetite, poor fluid intake, rectal bleeding, rectal pain, vomiting, others Genitourinary: reports: others (Urethral pain); denies: abnormal vagina bleeding, burning, dyspareunia, dysuria, flank pain, frequency, hematuria, incontinence, pain, , vagina discharge, urgency Neurological: denies: dizziness, fainting, headache, left sided numbness, left sided weakness, numbness, paresthesia, pre-existing deficit, right sided numbness, right sided weakness, seizure, speech problems, tingling, tremors, w eakness, others Musculoskeletal: denies: back pain, gout, joint pain, joint swelling, muscle pain, muscle stiffness, neck pain, others Integumetry: denies: bruises, change in color, change in hair/nails, dryness, laceration, lesions, lumps, rash, wounds, others Allergic/Immunocompromised: denies: Difficulty Healing, Frequent Infections, Hives, Itching, others Hematologic/Lymphatic: denies: anemia, blood clots, easy bleeding, easy bruising, swollen glands, others Endocrine: denies: excessive hunger, excessive sweating, excessive thirst, excessive urination, flushing, intolerance to cold, intolerance to heat, unexplained weight gain, unexplained weight loss, others Psychiatric: denies: anxiety, bipolar disorder, depression, hopeless, panic disorder, schizophrenia, sleepless, suicidal, others Physical Exam General Appearance: Moderate Distress (Moderate distress due to vaginal pain concerns), Obese HEENT: Normal ENT Inspection, Pharynx Normal, TMs Normal Neck: Full Range of Motion, Non-Tender, Normal, Normal Inspection Respiratory: Chest Non-Tender, Lungs Clear, No Accessory Muscle Use, No Respiratory Distress, Normal Breath Sounds Cardiovascular: No Edema, No JVD, No Murmur, No Gallop, Normal Peripheral Pulses, Regular Rate/Rhythm Breast Exam: Deferred Gastrointestinal: No Organomegaly, Non Tender, No Pulsatile Mass, Normal Bowel Sounds, Soft Genitalia: Deferred Pelvic: Deferred Rectal: Deferred Extremities: No calf tenderness, Normal capillary refill, Normal inspection, Normal range of motion, Non-tender, No pedal edema Neurologic: Alert Cerebellar Function: NOT DONE Reflexes: NOT DONE Skin: Dry, Normal Color, Warm Lymphatic: No Adenopathy Was a procedure done? Was a procedure done?: No Differential Dx Considerations may include: Smith catheter failure, UTI, urethral pain X-Ray, Labs, Meds, VS Vital Signs Date Time Temp Pulse Resp B/P (MAP) Pulse Ox O2 Delivery O2 Flow Rate FiO2 04/06/25 20:24 98.6 91 16 146/81 97 98.6 Lab Test 04/06/25 21:32 Range/Units Urine Color Light-yellow Yellow Urine Clarity Clear Clear Urine pH 5.5 5.0-9.0 Urine Specific [place] 1.026 1.001-1.035 Urine Protein Negative Negative Urine Ketones Negative Negative Urine Blood Negative Negative /uL Urine Nitrite Negative Negative Urine Bilirubin Negative Negative Urine Urobilinogen Normal Negative mg/dL Urine Leukocyte Esterase Trace Negative /uL Urine RBC 11 0 - 4 /hpf Urine Microscopic WBC 2 0-5 /HPF Urine Squamous Epithelial Cells Few <5 /hpf Urine Bacteria None seen None Seen /hpf Urine Glucose Normal Normal mg/dL Current Medications Medications (Trade) Dose Ordered Sig/Diann Route Start Time Stop Time Status Last Admin Acetaminophen/ Hydrocodone Bitart ([place] 10/325MG Tab) 1 tab ONCE ONCE PO 04/06/25 20:30 04/06/25 20:31 DC 04/06/25 21:28 X-Ray, Labs, Meds, VS Comment All studies performed the ED were evaluated by me personally. Urinalysis was unremarkable for any urinary tract infection. Patient received a Smith catheter placement. Advised patient continue follow up with her urologist as scheduled. Time of 1ST Reevaluation: 22:25 Reevaluation 1ST: Improved Consultation: PCP, Urology Patient Education/Counseling: Diagnosis, Treatment Family Education/Counseling: Diagnosis, Treatment SEPSIS Sepsis Screen Date sepsis recognized/suspect: Apr 06, 2025 Time Sepsis recognized/suspect: 2027 Recent Procedure: No On Antibiotic Therapy: No Respiratory Rate >20: No Heart Rate >90: No Temp<36 C (96.8 F) or >38.3 C: No SBP <90 or MAP <65 mmHG: No New Acute Mental Status Change: No Is the patient on CPAP, BIPAP,: No Physician Orders Ok To Change Smith (04/06/25 20:23) Vital Signs Date Time Temp Pulse Resp B/P (MAP) Pulse Ox O2 Delivery O2 Flow Rate FiO2 04/06/25 20:24 98.6 91 16 146/81 97 98.6 Medications Medications Dose Ordered Sig/Diann Route Start Time Stop Time Status Last Admin Dose Admin Acetaminophen/ Hydrocodone Bitart 1 tab ONCE ONCE PO 04/06/25 20:30 04/06/25 20:31 DC 04/06/25 21:28 Departure 1 Departure Time of Disposition: 22:26 Impression: Primary Impression: Smith catheter problem Disposition: HOME / SELF CARE / HOMELESS Condition: Stable Additional Instructions: Advised pain medication as needed and additionally, patient should follow up with her urologist for discussions related to today's visit as well as continuing management e-Prescriptions Tramadol HCl (Tramadol HCl) 50 Mg Tab 50 MG PO Q8HP PRN, #10 TAB Prov: AURA TEIXEIRA PAC 04/06/25 Discharged With: Self, Friend Critical Care Note Critical Care Time?: No Stability Stability form required: No Heart Score Heart Score: Heart Score Response (Comments) Value History N/A 0 EKG N/A 0 Age N/A 0 Risk Factors N/A 0 Troponin N/A 0 Total 0 AURA TEIXEIRA PAC Apr 06, 2025 22:27
[2025-04-06 22:55] VITALS: PULSE 90; RESP 18; TEMP 98.6; O2SAT 97
[2025-04-06] MEDS: HYDROmorphone HCL 2 MG/ML VL/or syr IM ONE (23:05)
[2025-04-06 23:11] VITALS: BP 122/78; PULSE 81; RESP 18; O2SAT 98
== END 2025-04-06 23:15 | disposition home or self-care (01) ==
LOC: ER 20:11 → EDBD 20:11 → ER 23:15
DX: T83.89XA Other specified complication of genitourinary prosthetic devices, implants and grafts, initial encounter (principal); F10.90 Alcohol use, unspecified, uncomplicated; J45.909 Unspecified asthma, uncomplicated; Z79.899 Other long term (current) drug therapy; Z88.6 Allergy status to analgesic agent; Z88.8 Allergy status to other drugs, medicaments and biological substances; Z90.89 Acquired absence of other organs; Z98.890 Other specified postprocedural states; Y84.8 Other medical procedures as the cause of abnormal reaction of the patient, or of later complication, without mention of misadventure at the time of the procedure; Y92.89 Other specified places as the place of occurrence of the external cause; Y90.9 Presence of alcohol in blood, level not specified
CPT/HCPCS: 51702; 81001; 96372; 99284; A4315; J1171